=== PATIENT | female | born 1945 | race African-American/Black ===

== ENCOUNTER 2019-09-20 12:51 | Inpatient (IN) | payer MEDICARE, OTHER ==
[~2019-09-20] VITALS: Ht 162.6 cm; Wt 54.4 kg
--- OUTSIDE RECORDS SUMMARY | 2019-09-20 12:54 | XMS REPORT ---
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 Allergies, Adverse Reactions, Alerts This patient has no known allergies or adverse reactions. Medications This patient has no known medications. Results Test Description Test Time Test Comments Text Results Atomic Results Result Comments RAD, SPINE, LUMBAR, 1 VIEW 2018-04-13 15:00:00 Reason for exam:->low back pain FINAL REPORT Lumbar spine one view INDICATION: Low back pain COMPARISON: None available. IMPRESSION: Spinal evaluation is significantly limited on a single view study. Vertebral heights are grossly maintained. There is suspected lower lumbar facet arthropathy and mild degenerative disc height loss. There are incidental vascular calcifications and nonspecific coarse pelvic calcification, possibly a fibroid. There is a 1.8 cm sclerotic lesion in the right iliac wing. Benign etiologies are possible, but neoplastic bone disease cannot be excluded. Consider bone scan for additional skeletal assessment. Signed: Antonio Gaineseport Verified Date/Time: 04/13/2018 15:00:22 Reading Location: [address] Consult Reading Room PHORUS 2018-04-13 05:37:00 PHOSPHORUS (BEAKER) (test ezkt=120) 4.1 mg/dL 2.3-4.7 [id number] 05:37:00* Test Item Value Reference Range Comments MAGNESIUM (BEAKER) (test okmf=306) 2.2 mg/dL 1.6-2.6 BASIC METABOLIC [id number] 05:37:00* Test Item Value Reference Range Comments SODIUM (BEAKER) (test knjm=618) 135 meq/L 136-145 POTASSIUM (BEAKER) (test rxgb=834) 4.2 meq/L 3.5-5.1 CHLORIDE (BEAKER) (test hqfd=527) 101 meq/L 98-107 CO2 (BEAKER) (test lmtf=825) 25 meq/L 22-29 BLOOD UREA NITROGEN (BEAKER) (test xtzd=480) 8 mg/dL 7-21 CREATININE (BEAKER) (test upwu=739) 0.72 mg/dL 0.57-1.25 GLUCOSE RANDOM (BEAKER) (test ionq=721) 103 mg/dL 70-105 CALCIUM (BEAKER) (test mwuj=476) 10.1 mg/dL 8.4-10.2 EGFR (BEAKER) (test jtkz=6164) 96 mL/min/1.73 sq m ESTIMATED GFR IS NOT ACCURATE CREATININE CLEARANCE IN PREDICTING GLOMERULAR FILTRATION RATE. ESTIMATED GFR IS NOT APPLICABLE FOR DIALYSIS PATIENTS. CBC W/PLT COUNT & AUTO [id number] 05:21:00* Test Item Value Reference Range Comments WHITE BLOOD CELL COUNT (BEAKER) (test hacq=400) 9.6 K/ L 3.5-10.5 RED BLOOD CELL COUNT (BEAKER) (test zzet=502) 4.44 M/ L 3.93-5.22 HEMOGLOBIN (BEAKER) (test cgte=627) 13.0 GM/DL 11.2-15.7 HEMATOCRIT (BEAKER) (test gwxj=176) 41.2 % 34.1-44.9 MEAN CORPUSCULAR VOLUME (BEAKER) (test ihhy=529) 92.8 fL 79.4-94.8 MEAN CORPUSCULAR HEMOGLOBIN (BEAKER) (test zbbi=851) 29.3 pg 25.6-32.2 MEAN CORPUSCULAR HEMOGLOBIN CONC (BEAKER) (test mhbs=816) 31.6 GM/DL 32.2-35.5 RED CELL DISTRIBUTION WIDTH (BEAKER) (test ylla=658) 13.2 % 11.7-14.4 PLATELET COUNT (BEAKER) (test rjwm=904) 233 K/CU MM 150-450 MEAN PLATELET VOLUME (BEAKER) (test xhlj=693) 9.4 fL 9.4-12.3 NUCLEATED RED BLOOD CELLS (BEAKER) (test rwpc=217) 0 /100 WBC 0-0 NEUTROPHILS RELATIVE PERCENT (BEAKER) (test awqx=803) 65 % LYMPHOCYTES RELATIVE PERCENT (BEAKER) (test sgyi=329) 25 % MONOCYTES RELATIVE PERCENT (BEAKER) (test ejes=302) 9 % EOSINOPHILS RELATIVE PERCENT (BEAKER) (test exvt=366) 1 % BASOPHILS RELATIVE PERCENT (BEAKER) (test llil=845) 0 % NEUTROPHILS ABSOLUTE COUNT (BEAKER) (test lzhn=294) 6.24 K/ L 1.56-6.13 LYMPHOCYTES ABSOLUTE COUNT (BEAKER) (test uxbr=439) 2.38 K/ L 1.18-3.74 MONOCYTES ABSOLUTE COUNT (BEAKER) (test onov=688) 0.86 K/ L 0.24-0.36 EOSINOPHILS ABSOLUTE COUNT (BEAKER) (test nele=953) 0.07 K/ L 0.04-0.36 BASOPHILS ABSOLUTE COUNT (BEAKER) (test ypmj=993) 0.02 K/ L 0.01-0.08 IMMATURE GRANULOCYTES-RELATIVE PERCENT (BEAKER) (test jwyb=1701) 0 % 0-1 CBC W/PLT COUNT & AUTO [id number] 06:51:00* Test Item Value Reference Range Comments WHITE BLOOD CELL COUNT (BEAKER) (test ysec=252) 7.0 K/ L 3.5-10.5 RED BLOOD CELL COUNT (BEAKER) (test umjy=836) 3.97 M/ L 3.93-5.22 HEMOGLOBIN (BEAKER) (test dvnn=220) 11.6 GM/DL 11.2-15.7 HEMATOCRIT (BEAKER) (test jmvf=452) 35.9 % 34.1-44.9 MEAN CORPUSCULAR VOLUME (BEAKER) (test szgv=977) 90.4 fL 79.4-94.8 MEAN CORPUSCULAR HEMOGLOBIN (BEAKER) (test qqpt=098) 29.2 pg 25.6-32.2 MEAN CORPUSCULAR HEMOGLOBIN CONC (BEAKER) (test zhpm=032) 32.3 GM/DL 32.2-35.5 RED CELL DISTRIBUTION WIDTH (BEAKER) (test bohg=572) 13.2 % 11.7-14.4 PLATELET COUNT (BEAKER) (test oobf=084) 188 K/CU MM 150-450 MEAN PLATELET VOLUME (BEAKER) (test rqhp=820) 9.5 fL 9.4-12.3 NUCLEATED RED BLOOD CELLS (BEAKER) (test yjud=108) 0 /100 WBC 0-0 NEUTROPHILS RELATIVE PERCENT (BEAKER) (test ggwm=552) 54 % LYMPHOCYTES RELATIVE PERCENT (BEAKER) (test cbip=836) 36 % MONOCYTES RELATIVE PERCENT (BEAKER) (test rjps=988) 8 % EOSINOPHILS RELATIVE PERCENT (BEAKER) (test axtl=145) 2 % BASOPHILS RELATIVE PERCENT (BEAKER) (test eibu=449) 1 % NEUTROPHILS ABSOLUTE COUNT (BEAKER) (test hkby=097) 3.75 K/ L 1.56-6.13 LYMPHOCYTES ABSOLUTE COUNT (BEAKER) (test sdod=372) 2.48 K/ L 1.18-3.74 MONOCYTES ABSOLUTE COUNT (BEAKER) (test saxj=850) 0.56 K/ L 0.24-0.36 EOSINOPHILS ABSOLUTE COUNT (BEAKER) (test evgu=247) 0.14 K/ L 0.04-0.36 BASOPHILS ABSOLUTE COUNT (BEAKER) (test slbk=378) 0.04 K/ L 0.01-0.08 IMMATURE GRANULOCYTES-RELATIVE PERCENT (BEAKER) (test uehp=4339) 0 % 0-1 RAD, CHEST, 1 VIEW, NON [id number] 08:16:00Reason for exam:->SHORTNESS OF BREATHShould this be performed at the bedside?->YesFINAL REPORT INDICATION: SHORTNESS OF BREATH COMPARISON: April 09, 2018 TECHNIQUE: Chest radiograph, single view, portable technique. FINDINGS / IMPRESSION: Right internal jugular pulmonary artery catheter has been removed. No pulmonary venous congestion or edema. Right hilar surgical clips and highly elevated right hemidiaphragm again noted. Signed: Enrique Mccray MDReport Verified Date/Time: 04/10/2018 08:16:24 Reading Location: [facility] C013X Ortho Consult Reading Room Electronically signed by: ENRIQUE MCCRAY M.D. on 0 04/10/2018 08:16 AM BASIC METABOLIC [id number] 07:15:00* Test Item Value Reference Range Comments SODIUM (BEAKER) (test rlbx=172) 142 meq/L 136-145 POTASSIUM (BEAKER) (test gubf=783) 3.9 meq/L 3.5-5.1 CHLORIDE (BEAKER) (test lhvj=217) 109 meq/L 98-107 CO2 (BEAKER) (test vbdi=708) 25 meq/L 22-29 BLOOD UREA NITROGEN (BEAKER) (test bezn=810) 11 mg/dL 7-21 CREATININE (BEAKER) (test asxx=027) 0.67 mg/dL 0.57-1.25 GLUCOSE RANDOM (BEAKER) (test wiir=736) 91 mg/dL 70-105 CALCIUM (BEAKER) (test ledq=090) 9.2 mg/dL 8.4-10.2 EGFR (BEAKER) (test rnmy=3190) 105 mL/min/1.73 sq m ESTIMATED GFR IS NOT ACCURATE CREATININE CLEARANCE IN PREDICTING GLOMERULAR FILTRATION RATE. ESTIMATED GFR IS NOT APPLICABLE FOR DIALYSIS PATIENTS. CBC W/PLT COUNT & AUTO [id number] 06:51:00* Test Item Value Reference Range Comments WHITE BLOOD CELL COUNT (BEAKER) (test uhdq=519) 8.6 K/ L 3.5-10.5 RED BLOOD CELL COUNT (BEAKER) (test rlqd=705) 4.24 M/ L 3.93-5.22 HEMOGLOBIN (BEAKER) (test xxvb=197) 12.2 GM/DL 11.2-15.7 HEMATOCRIT (BEAKER) (test xvjp=698) 39.4 % 34.1-44.9 MEAN CORPUSCULAR VOLUME (BEAKER) (test rlay=750) 92.9 fL 79.4-94.8 MEAN CORPUSCULAR HEMOGLOBIN (BEAKER) (test clib=980) 28.8 pg 25.6-32.2 MEAN CORPUSCULAR HEMOGLOBIN CONC (BEAKER) (test mrnu=595) 31.0 GM/DL 32.2-35.5 RED CELL DISTRIBUTION WIDTH (BEAKER) (test wxrf=150) 13.5 % 11.7-14.4 PLATELET COUNT (BEAKER) (test mjhy=812) 168 K/CU MM 150-450 MEAN PLATELET VOLUME (BEAKER) (test ghya=759) 9.4 fL 9.4-12.3 NUCLEATED RED BLOOD CELLS (BEAKER) (test cexo=939) 0 /100 WBC 0-0 NEUTROPHILS RELATIVE PERCENT (BEAKER) (test dmhs=798) 57 % LYMPHOCYTES RELATIVE PERCENT (BEAKER) (test fnxn=327) 35 % MONOCYTES RELATIVE PERCENT (BEAKER) (test gayf=563) 7 % EOSINOPHILS RELATIVE PERCENT (BEAKER) (test grue=558) 1 % BASOPHILS RELATIVE PERCENT (BEAKER) (test arij=892) 0 % NEUTROPHILS ABSOLUTE COUNT (BEAKER) (test pltu=150) 4.89 K/ L 1.56-6.13 LYMPHOCYTES ABSOLUTE COUNT (BEAKER) (test yrsv=811) 2.96 K/ L 1.18-3.74 MONOCYTES ABSOLUTE COUNT (BEAKER) (test ujle=334) 0.60 K/ L 0.24-0.36 EOSINOPHILS ABSOLUTE COUNT (BEAKER) (test wdxm=165) 0.08 K/ L 0.04-0.36 BASOPHILS ABSOLUTE COUNT (BEAKER) (test mtuw=551) 0.03 K/ L 0.01-0.08 IMMATURE GRANULOCYTES-RELATIVE PERCENT (BEAKER) (test cxxt=1699) 0 % 0-1 [id number] 17:17:00* Test Item Value Reference Range Comments FIBRINOGEN LEVEL (BEAKER) (test mgnu=635) 276 mg/dl 225-434 Continue for duration of infusion.HEMOGLOBIN AND [id number] 17:09:00* Test Item Value Reference Range Comments HEMOGLOBIN (BEAKER) (test fcpd=508) 12.4 GM/DL 11.2-15.7 HEMATOCRIT (BEAKER) (test bbdg=883) 37.9 % 34.1-44.9 B-TYPE NATRIURETIC FACTOR (BNP)2018-04-09 14:10:00* Test Item Value Reference Range Comments B-TYPE NATRIURETIC PEPTIDE (BEAKER) (test zjan=252) 336 pg/mL 0-100 [id number] 11:34:00* Test Item Value Reference Range Comments FIBRINOGEN LEVEL (BEAKER) (test ehgb=850) 295 mg/dl 225-434 Continue for duration of infusion.HEMOGLOBIN AND [id number] 11:29:00* Test Item Value Reference Range Comments HEMOGLOBIN (BEAKER) (test nksk=166) 12.8 GM/DL 11.2-15.7 HEMATOCRIT (BEAKER) (test owij=875) 40.1 % 34.1-44.9 TROPONIN [id number] 09:44:00* Test Item Value Reference Range Comments TROPONIN I (BEAKER) (test sfgt=558) 0.33 ng/mL 0.00-0.03 Troponin I (TnI) levels must be interpreted in the context of the presenting sym ptoms and the clinical findings. Elevated TnI levels indicate myocardial damage, but are not specific for ischemic heart disease. Elevated TnI levels are seen in patients with other cardiac conditions (including myocarditis and congestive h eart failure), and slight TnI elevations occur in patients with other conditions , including sepsis, renal failure, acidosis, acute neurological disease, and per sistent tachyarrhythmia.[id number] 06:17:00* Test Item Value Reference Range Comments MAGNESIUM (BEAKER) (test vmeu=142) 2.2 mg/dL 1.6-2.6 BASIC METABOLIC [id number] 06:17:00* Test Item Value Reference Range Comments SODIUM (BEAKER) (test feco=886) 139 meq/L 136-145 POTASSIUM (BEAKER) (test uget=921) 4.1 meq/L 3.5-5.1 CHLORIDE (BEAKER) (test xjjw=346) 107 meq/L 98-107 CO2 (BEAKER) (test ujnz=326) 23 meq/L 22-29 BLOOD UREA NITROGEN (BEAKER) (test wurx=749) 11 mg/dL 7-21 CREATININE (BEAKER) (test nafw=023) 0.67 mg/dL 0.57-1.25 GLUCOSE RANDOM (BEAKER) (test zifr=964) 132 mg/dL 70-105 CALCIUM (BEAKER) (test njom=198) 9.2 mg/dL 8.4-10.2 EGFR (BEAKER) (test ezph=8948) 105 mL/min/1.73 sq m ESTIMATED GFR IS NOT ACCURATE CREATININE CLEARANCE IN PREDICTING GLOMERULAR FILTRATION RATE. ESTIMATED GFR IS NOT APPLICABLE FOR DIALYSIS PATIENTS. CBC W/PLT COUNT & AUTO [id number] 05:44:00* Test Item Value Reference Range Comments WHITE BLOOD CELL COUNT (BEAKER) (test qdbe=331) 9.7 K/ L 3.5-10.5 RED BLOOD CELL COUNT (BEAKER) (test sbwr=587) 4.45 M/ L 3.93-5.22 HEMOGLOBIN (BEAKER) (test yhyd=642) 12.9 GM/DL 11.2-15.7 HEMATOCRIT (BEAKER) (test rckv=197) 39.9 % 34.1-44.9 MEAN CORPUSCULAR VOLUME (BEAKER) (test osrs=098) 89.7 fL 79.4-94.8 MEAN CORPUSCULAR HEMOGLOBIN (BEAKER) (test usvc=443) 29.0 pg 25.6-32.2 MEAN CORPUSCULAR HEMOGLOBIN CONC (BEAKER) (test naee=964) 32.3 GM/DL 32.2-35.5 RED CELL DISTRIBUTION WIDTH (BEAKER) (test gbvu=946) 13.0 % 11.7-14.4 PLATELET COUNT (BEAKER) (test eave=628) 195 K/CU MM 150-450 MEAN PLATELET VOLUME (BEAKER) (test rthi=147) 9.2 fL 9.4-12.3 NUCLEATED RED BLOOD CELLS (BEAKER) (test zkgo=439) 0 /100 WBC 0-0 NEUTROPHILS RELATIVE PERCENT (BEAKER) (test yvrh=197) 81 % LYMPHOCYTES RELATIVE PERCENT (BEAKER) (test duow=286) 11 % MONOCYTES RELATIVE PERCENT (BEAKER) (test lqas=184) 7 % EOSINOPHILS RELATIVE PERCENT (BEAKER) (test fmao=874) 0 % BASOPHILS RELATIVE PERCENT (BEAKER) (test tdzv=685) 0 % NEUTROPHILS ABSOLUTE COUNT (BEAKER) (test vbnz=084) 7.90 K/ L 1.56-6.13 LYMPHOCYTES ABSOLUTE COUNT (BEAKER) (test jllv=172) 1.08 K/ L 1.18-3.74 MONOCYTES ABSOLUTE COUNT (BEAKER) (test tylx=160) 0.68 K/ L 0.24-0.36 EOSINOPHILS ABSOLUTE COUNT (BEAKER) (test egpo=946) 0.00 K/ L 0.04-0.36 BASOPHILS ABSOLUTE COUNT (BEAKER) (test xras=810) 0.01 K/ L 0.01-0.08 IMMATURE GRANULOCYTES-RELATIVE PERCENT (BEAKER) (test yonl=1914) 1 % 0-1 [id number] 05:26:00* Test Item Value Reference Range Comments FIBRINOGEN LEVEL (BEAKER) (test hiah=772) 356 mg/dl 225-434 Continue for duration of infusion.[id number] 05:26:00* Test Item Value Reference Range Comments PARTIAL THROMBOPLASTIN TIME (BEAKER) (test imzh=643) 29.6 seconds 22.5-36.0 Continue for duration of infusion.RAD, CHEST, 1 VIEW, NON [id number] 04:07:00Reason for exam:->SHORTNESS OF BREATHShould this be performed at the bedside?->YesFINAL REPORT Comparison exam: 04/08/2018 No pneumothorax, focal pulmonary consolidation, or significant pleural effusion. Normal cardiomediastinal contours. Pulmonary artery infusion catheter terminates in a left lower lobe pulmonary artery branch. Signed: Neto Townsend MDReport Verified Date/Time: 04/09/2018 04:07:31 Reading Location: [address] Reading Room ONIN [id number] 00:57:00* Test Item Value Reference Range Comments TROPONIN I (BEAKER) (test eiyd=453) 0.54 ng/mL 0.00-0.03 Troponin I (TnI) levels must be interpreted in the context of the presenting sym ptoms and the clinical findings. Elevated TnI levels indicate myocardial damage, but are not specific for ischemic heart disease. Elevated TnI levels are seen in patients with other cardiac conditions (including myocarditis and congestive h eart failure), and slight TnI elevations occur in patients with other conditions , including sepsis, renal failure, acidosis, acute neurological disease, and per sistent tachyarrhythmia.[id number] 00:54:00* Test Item Value Reference Range Comments FIBRINOGEN LEVEL (BEAKER) (test rfko=627) 406 mg/dl 225-434 Obtain lab prior to starting thrombolytic infusion.Obtain lab prior to starting thrombolytic infusion.[id number] 00:54:00* Test Item Value Reference Range Comments PROTIME (BEAKER) (test orcm=757) 15.5 seconds 11.7-14.7 INR (BEAKER) (test esrx=552) 1.2 <=5.9 PARTIAL THROMBOPLASTIN TIME (BEAKER) (test ynay=840) 37.8 seconds 22.5-36.0 RECOMMENDED COUMADIN/WARFARIN INR THERAPY RANGESSTANDARD DOSE: 2.0 - 3.0 Inclu yonis: PROPHYLAXIS for venous thrombosis, systemic embolization; TREATMENT for josh ous thrombosis and/or pulmonary embolus.HIGH RISK: Target INR is 2.5-3.5 for pat ients with mechanical heart valves.Obtain lab prior to starting thrombolytic inf usion.Obtain lab prior to starting thrombolytic infusion.Obtain lab prior to sta rting thrombolytic infusion.Obtain lab prior to starting thrombolytic infusion. CBC W/PLT COUNT & AUTO [id number] 00:53:00* Test Item Value Reference Range Comments WHITE BLOOD CELL COUNT (BEAKER) (test nqca=849) 5.7 K/ L 3.5-10.5 RED BLOOD CELL COUNT (BEAKER) (test kuke=034) 4.63 M/ L 3.93-5.22 HEMOGLOBIN (BEAKER) (test xhuc=990) 13.5 GM/DL 11.2-15.7 HEMATOCRIT (BEAKER) (test zeks=369) 42.1 % 34.1-44.9 MEAN CORPUSCULAR VOLUME (BEAKER) (test oudn=322) 90.9 fL 79.4-94.8 MEAN CORPUSCULAR HEMOGLOBIN (BEAKER) (test wawr=601) 29.2 pg 25.6-32.2 MEAN CORPUSCULAR HEMOGLOBIN CONC (BEAKER) (test axdo=724) 32.1 GM/DL 32.2-35.5 RED CELL DISTRIBUTION WIDTH (BEAKER) (test aued=869) 13.0 % 11.7-14.4 PLATELET COUNT (BEAKER) (test spdl=516) 219 K/CU MM 150-450 MEAN PLATELET VOLUME (BEAKER) (test qroy=352) 9.1 fL 9.4-12.3 NUCLEATED RED BLOOD CELLS (BEAKER) (test zoes=006) 0 /100 WBC 0-0 NEUTROPHILS RELATIVE PERCENT (BEAKER) (test wiid=162) 86 % LYMPHOCYTES RELATIVE PERCENT (BEAKER) (test zzye=159) 12 % MONOCYTES RELATIVE PERCENT (BEAKER) (test rrmv=365) 2 % EOSINOPHILS RELATIVE PERCENT (BEAKER) (test tffu=558) 0 % BASOPHILS RELATIVE PERCENT (BEAKER) (test gxkf=215) 0 % NEUTROPHILS ABSOLUTE COUNT (BEAKER) (test qmkd=015) 4.90 K/ L 1.56-6.13 LYMPHOCYTES ABSOLUTE COUNT (BEAKER) (test dghk=781) 0.68 K/ L 1.18-3.74 MONOCYTES ABSOLUTE COUNT (BEAKER) (test hmwt=936) 0.10 K/ L 0.24-0.36 EOSINOPHILS ABSOLUTE COUNT (BEAKER) (test gzah=624) 0.00 K/ L 0.04-0.36 BASOPHILS ABSOLUTE COUNT (BEAKER) (test qwbf=231) 0.00 K/ L 0.01-0.08 IMMATURE GRANULOCYTES-RELATIVE PERCENT (BEAKER) (test mbud=0680) 1 % 0-1 PROTHROMBIN TIME/[id number] 00:53:00* Test Item Value Reference Range Comments PROTIME (BEAKER) (test bixv=269) 15.5 seconds 11.7-14.7 INR (BEAKER) (test xqvi=407) 1.2 <=5.9 RECOMMENDED COUMADIN/WARFARIN INR THERAPY RANGESSTANDARD DOSE: 2.0 - 3.0 Inclu yonis: PROPHYLAXIS for venous thrombosis, systemic embolization; TREATMENT for josh ous thrombosis and/or pulmonary embolus.HIGH RISK: Target INR is 2.5-3.5 for pat ients with mechanical heart valves.CT, CHEST WITH IV CONTRAST- PE TEST DESIGN 2018-04-08 16:16:00Reason for exam:->SOB/CPFINAL REPORT HISTORY: Chest pain, acute, PE suspected, high pretest probSOB/CP COMPARISON : None Technique : Multiple axial images of the chest were performed from the lung apices to the lung bases with 2 mm slice thickness with the administration of IV contrast. This exam was performed according to our departmental dose optimization program which includes automated exposure control, adjustment of the mA and/or kV according to patient size and/or use of iterative reconstructive technique. Comment: There is asymmetric enlargement of the right thyroid lobe. There are several nodules with the largest measuring up to 1.7 cm. Correlation with a thyroid ultrasound is advised. There is no hilar, mediastinal or axillary lymphadenopathy. The visualized portions of the liver, adrenal glands, pancreas, and kidneys are within normal limits. There are at least 2 enhancing splenic lesions with the largest measuring up to 0.9 cm. These can be best assessed with an MRI, multiphase protocol. These could represent splenic hamartomas or splenic hemangiomata. Other etiologies, however, cannot be excl uded. The osseous structures as well as the subcutaneous soft tissues are withou t any abnormalities. There are some scattered areas of some linear subsegmental atelectasis versus scarring in the lungs. In the right lower lobe, there is an a pproximately 2 mm pulmonary nodule. Postsurgical changes are seen from a presume d right upper lobectomy. There is no pleural effusion, pneumothorax or infiltrat e. This is seen most significantly in the left distal pulmonary artery extending into several segmental and subsegmental pulmonary artery branches. Extensive em bolus is also seen in the distal portion of the main right pulmonary artery. Fin dings were communicated to Dr. Hunt. Impression: 1. Extensive bilateral pulmona ry embolus. 2. Postsurgical changes suggestive of prior right upper lobectomy. 3 . Subcentimeter nodule in the right lower lobe. Follow-up CT in 6 months is advi sed. 4. Enlargement of the right thyroid lobe with several nodules/cysts. Please see above. Signed: Deisy Royal MDReport Verified Date/Time: 04/08/2018 16:16: 07 Reading Location: [facility] B1 C013Y CT Body Reading Room Electronically sign ed by: DEISY ROYAL M.D. on 04/08/2018 04:16 PM [id number] 15:27:00* Test Item Value Reference Range Comments PARTIAL THROMBOPLASTIN TIME (CATHIE) (test ufoc=574) 25.2 seconds 22.5-36.0 Prior to initiating heparinTROPONIN [id number] 14:58:00* Test Item Value Reference Range Comments TROPONIN I (CATHIE) (test nfkg=521) 0.35 ng/mL 0.00-0.03 Troponin I (TnI) levels must be interpreted in the context of the presenting sym ptoms and the clinical findings. Elevated TnI levels indicate myocardial damage, but are not specific for ischemic heart disease. Elevated TnI levels are seen in patients with other cardiac conditions (including myocarditis and congestive h eart failure), and slight TnI elevations occur in patients with other conditions , including sepsis, renal failure, acidosis, acute neurological disease, and per sistent tachyarrhythmia.CREATINE KINASE (CK), TOTAL AND [id number] 14:55:00* Test Item Value Reference Range Comments CREATINE KINASE TOTAL (BEAKER) (test okmc=651) 42 U/L 29-200 CREATINE KINASE-MB (BEAKER) (test nkyr=849) 2.7 ng/mL 0.0-6.6 CREATINE KINASE-MB INDEX (BEAKER) (test jmzj=276) 6.4 % CK-MB Reference Range:<6.7 Normal6.7-10.0 Borderline>10.0 AbnormalB- TYPE NATRIURETIC FACTOR (BNP)2018-04-08 14:52:00* Test Item Value Reference Range Comments B-TYPE NATRIURETIC PEPTIDE (BEAKER) (test xgcd=472) 118 pg/mL 0-100 BASIC METABOLIC [id number] 14:48:00* Test Item Value Reference Range Comments SODIUM (BEAKER) (test nsfj=476) 141 meq/L 136-145 POTASSIUM (BEAKER) (test lvmr=425) 4.5 meq/L 3.5-5.1 Specimen slightly hemolyzed CHLORIDE (BEAKER) (test hlgp=364) 110 meq/L 98-107 CO2 (BEAKER) (test uaid=808) 21 meq/L 22-29 BLOOD UREA NITROGEN (BEAKER) (test ovfm=001) 9 mg/dL 7-21 CREATININE (BEAKER) (test yrke=896) 0.68 mg/dL 0.57-1.25 Specimen slightly hemolyzed GLUCOSE RANDOM (BEAKER) (test rjwk=596) 141 mg/dL 70-105 CALCIUM (BEAKER) (test tsqj=524) 10.0 mg/dL 8.4-10.2 EGFR (BEAKER) (test rakf=1070) 103 mL/min/1.73 sq m ESTIMATED GFR IS NOT ACCURATE CREATININE CLEARANCE IN PREDICTING GLOMERULAR FILTRATION RATE. ESTIMATED GFR IS NOT APPLICABLE FOR DIALYSIS PATIENTS. CBC W/PLT COUNT & AUTO [id number] 13:52:00* Test Item Value Reference Range Comments WHITE BLOOD CELL COUNT (BEAKER) (test tkgf=021) 5.5 K/ L 3.5-10.5 RED BLOOD CELL COUNT (BEAKER) (test piag=998) 4.74 M/ L 3.93-5.22 HEMOGLOBIN (BEAKER) (test dryr=769) 13.8 GM/DL 11.2-15.7 HEMATOCRIT (BEAKER) (test ubvk=304) 43.0 % 34.1-44.9 MEAN CORPUSCULAR VOLUME (BEAKER) (test rtze=391) 90.7 fL 79.4-94.8 MEAN CORPUSCULAR HEMOGLOBIN (BEAKER) (test sgam=682) 29.1 pg 25.6-32.2 MEAN CORPUSCULAR HEMOGLOBIN CONC (BEAKER) (test nncr=401) 32.1 GM/DL 32.2-35.5 RED CELL DISTRIBUTION WIDTH (BEAKER) (test etlw=577) 13.2 % 11.7-14.4 PLATELET COUNT (BEAKER) (test nfzy=136) 215 K/CU MM 150-450 MEAN PLATELET VOLUME (BEAKER) (test llbe=455) 9.4 fL 9.4-12.3 NUCLEATED RED BLOOD CELLS (BEAKER) (test hibs=502) 0 /100 WBC 0-0 NEUTROPHILS RELATIVE PERCENT (BEAKER) (test aaqy=364) 83 % LYMPHOCYTES RELATIVE PERCENT (BEAKER) (test bcxr=360) 14 % MONOCYTES RELATIVE PERCENT (BEAKER) (test lgdg=968) 3 % EOSINOPHILS RELATIVE PERCENT (BEAKER) (test vmlj=175) 0 % BASOPHILS RELATIVE PERCENT (BEAKER) (test fjgf=869) 0 % NEUTROPHILS ABSOLUTE COUNT (BEAKER) (test rncw=173) 4.55 K/ L 1.56-6.13 LYMPHOCYTES ABSOLUTE COUNT (BEAKER) (test vzlv=059) 0.74 K/ L 1.18-3.74 MONOCYTES ABSOLUTE COUNT (BEAKER) (test jyrk=846) 0.15 K/ L 0.24-0.36 EOSINOPHILS ABSOLUTE COUNT (BEAKER) (test ipyg=158) 0.01 K/ L 0.04-0.36 BASOPHILS ABSOLUTE COUNT (BEAKER) (test ocby=833) 0.01 K/ L 0.01-0.08 IMMATURE GRANULOCYTES-RELATIVE PERCENT (BEAKER) (test bwgd=9394) 0 % 0-1 RAD, CHEST, 1 VIEW, NON [id number] 13:50:00Reason for exam:->sobShould this be performed at the bedside?->NoFINAL REPORT Chest one view compared to February 17, 2018 Discussion: Linear densities projecting right chest possibly represent overlying material. There is minimal elevation right hemidiaphragm and I could not exclude right base nonspecific pulmonary opacities. Consider follow-up PA and lateral chest imaging if indicated. Cardiopulmonary appearance otherwise unremarkable. No gross effusion or pneumothorax. Signed: Diane Nesbitteptariq Verified Date/Time: 04/08/2018 13:50:13 Reading Location: [facility] B1 [id number] Consult Reading Room UE [id number] 19:30:00Surgical Pathology Report Case: [id number] Authorizing Provider: Reji Morrison MD Collected: 02/11/2018 1430 Ordering Location: [facility] Received: 02/11/2018 1548 PERIOPERATIVE SERVICES Pathologist: Fabby Theodore MD Specimens: A) - Lymph Node, Right Interlobar lymph nodes B) - Lymph Node, RightInferior Pulmonary Lymph Node R9 C) - Lymph Node, SubCarinal Lymph Node level 7 D) - Lung, Right Upper Lobe, RIGHT UPPER LOBE E) - Lymph Node, RIGHT PARATRACHEAL LYMPH NODES 4R F) - Lymph Node, RIGHT PARANRONCHEAL LYMPH NODES G) - Lymph Node, RIGHT HILAR LYMPH NODE A. RIGHT INTERLOBAR LYMPH NODES, DISSECTION: - TWO LYMPH NODES WITH ANTHRACOSIS, NEGATIVE FOR MALIGNANCY (0/2) B. LYMPH NODE, RIGHT INFERIOR PULMONARY LYMPH NODE R9, EXCISION: - LYMPH NODE WITH ANTHRACOSIS, NEGATIVE FOR MALIGNANCY (0/1)C. LYMPH NODE, SUBCARINAL, LEVEL 7, EXCISION: - LARGE LYMPH NODE (3.5 CM IN GREATEST DIMENSION) WITH ANTHRACOSIS, NEGATIVE FOR MALIGNANCY (0/1)D. 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 MULTIPLE LYMPH NODES, RIGHT PERITRACHEAL, DISSECTION: - LYMPH NODES WITH ANTHRACOSIS, NEGATIVE FOR MALIGNANCY (0/5) F. LYMPH NODE, RIGHT PARABRONCHIAL, EXCISION: - LYMPH NODE WITH ANTHRACOSIS, NEGATIVE FOR MALIGNANCY (0/1)G. RIGHT HILAR LYMPH NODE, DISSECTION: - LYMPH NODES WITH ANTHRACOSIS, NEGATIVE FOR MALIGNANCY (0/2)MO/pl Signing Pathologist Direct Phone Line: [phone] signed by Fabby Theodore MD on 02/18/2018 at 7:30 PMThe tumor is close to the pleura, but does not invade that structure. In slide D9, there is acinar adenocarcinoma, 0.5 mm from the pleura. Other slides (D8 and D12) show tumor approaching the pleura, focally within 0.1 mm (lepidic) and less than 0.1mm (acinar).This tumor is pathologic stage pT2b/N0/MxLUNG ( Lung - All Specimens)SPECIMEN Procedure: Lobectomy Specimen Laterality: Right TUMOR Tumor Site: Upper lobe Histologic Type: Invasive adeno carcinoma, lepidic predominant Other Subtypes Present: acinar 25% His tologic Grade: G1: Well differentiated Spread Through Air Spaces (PATRICE): Not identified : Total Tumor Size Inclusive of Invasive and Lepidic Com ponents: Greatest dimension in Centimeters (cm): 4.1 Centimeters (cm) Add itional Dimension in Centimeters (cm): 2.2 Centimeters (cm) Additional Di mension in Centimeters (cm): 2 Centimeters (cm) Invasive Tumor Size: Gre atest dimension in Centimeters (cm): 4.1 Centimeters (cm) Additional Dimensi on in Centimeters (cm): 2.2 Centimeters (cm) Additional Dimension in Cent imeters (cm): 2 Centimeters (cm) Tumor Focality: Single tumor Visceral Pleura Invasion: Not identified Direct Invasion of Adjacent Structures: No adjacent structures present Treatment Effect: No known presurgical the rapy Lymphovascular Invasion: Not identified MARGINS Margins: All franki ns are uninvolved by carcinoma Margins Examined: Bronchial Margins Exam ined: Vascular Margins Examined: Parenchymal Distance of Invasive Ca rcinoma from Closest Margin in Centimeters (cm): 4 Centimeters (cm) Close st Margin: Parenchymal Closest Margin: bronchial margin 5cm LYMPH NOD ES Regional Lymph Nodes: Number of Lymph Nodes Involved: 0 Number of Lymph Nodes Examined: 23 Ruben Stations Examined: 4R: Lower paratrac heal Ruben Stations Examined: 9R: Pulmonary ligament Ruben Stations Examined: 10R: Hilar Ruben Stations Examined: 11R: Interlobar N odal Stations Examined: 12R: Lobar Ruben Stations Examined: Right: pa rabronchial Ruben Stations Examined: 7: Subcarinal PATHOLOGIC STAGE CLAS SIFICATION (pTNM, AJCC 8th Edition) Primary Tumor (pT): pT2b Regional Lymph Nodes (pN): pN0 ADDITIONAL FINDINGS Additional Pathologic Findings: Inflam mation: chronic, focal Additional Pathologic Findings: Emphysema 05267 x 1; 14151 x3;; 03984 x3; 46811Mfmvl upper lobe noduleA. Right interlobar lymph node; B. Right inferior pulmonary lymph node R9; C. Subcarinal lymph node level 7; D. Right upper lobe lung; E. Right paratracheal lymph node 4R; F. Right parabronch ial lymph node; G. Right hilar lymph nodeSpecimen A: In saline labeled "right in terlobar lymph nodes" are two irregular pink-murray to black anthracotic lymph node measuring 1.1 cm and 1.1 cm in greatest dimension. The specimen is entirely sub mitted in cassette A1. Specimen B: In saline labeled "right inferior pulmonary l ymph node R9" is a 1.0 cm in greatest dimension yellow-murray irregular fragment of soft tissue. The specimen is entirely submitted in cassettes B1. Specimen C: In saline labeled "subcarinal lymph node level 7" is a 3.5 x 2.2 x 0.8 cm pink-murray to black irregular anthracotic lymph node. The specimen is bisected and entirely submitted in cassette C1-C2. DB/plSpecimen D: Received fresh for intraoperative frozen consultation diagnosis labeled "right upper lobe lung" is a 112.5 gm, 14 x 8 x 2.6 cm right upper lobe of lung with a 0.3 cm long bronchovascular stump and two stapled linear margins 8 cm and 3 cm coursing from inferior to superio r. The visceral pleura shows a 4 cm area with a subjacent mass. The bronchial ma rgin is shaved for frozen section and the stapled margins are shaved and the spe cimen is serially sectioned to reveal a 4.1 x 2.2 x 2.0 cm nodule that is locate d at 4 cm from the closest staple margin and 5 cm from the bronchus and appears to be grossly abutting the pleura. The cut surface of the mass is murray-yellow and firm. The uninvolved lung is mildly congested with no other discrete lesions or masses. The pleura is murray-red, anthracotic and shows a 2 x 1.5 x 0.4 cm bleb lo cated on the superior aspect. Multiple duran-black soft lymph nodes ranging from 0.1 to 0.3 cm are identified in the peribronchial region. The pleura overlying t he mass is inked black and stapled margins are inked blue and field representatives director sec tions are submitted as follows: D1FS, bronchial margin en face; D2, 3 cm stapled linear margin en face submitted entirely; D3 to D4, 8 cm linear stapled margin en face submitted entirely; D5, bronchial vessels at margin; D6 to D14, tumor cosby bmitted in its entirety sequentially from superior to inferior with adjacent abu tting pleura and adjacent lung parenchyma; D15, field representatives director section of the bl eb; D16, field representatives director section of uninvolved lung; D17 to D20, multiple whole l ymph nodes in each cassette. TQ/plSpecimen E: In saline labeled "right paratrach eal lymph node 4R" are three irregular yellow-murray to black fragments of soft tis kathryn measuring 2.5 x 2.2 x 0.2 cm in aggregate. The specimen is entirely submitte d in cassette E1. Specimen F: In saline labeled "right parabronchial lymph node" is a 1.2 cm in greatest dimension pink-murray to black irregular lymph node. The s pecimen is bisected and entirely submitted in cassette F1. Specimen G: In saline labeled "right hilar lymph node" are two lymph nodes, less than 1cm, pink-murray to black irregular, and with anthracosos. The specimen is entirely submitted in c assette G1. DB/plD. LUNG, RIGHT UPPER LOBE, LOBECTOMY: - BRONCHIAL MARGIN - NEG ATIVE MALIGNANCY - 4 CM FROM CLOSEST STAPLE LINE - 5 CM FROM BRONCHIAL MARGINT his diagnosis was reported to OR-[address] Theodore at 4:14 p.m. D. The right up per lobectomy shows an adenocarcinoma, well-differentiated, focally associated w ith a scar (scar carcinoma). Focally, the lesion encircles some bronchial branch es and extends close to, but nor into or through the pleura. Tumor is present in slides D6 to D14, throughout and sometimes associated with some atypical alveol ar hyperplasia, or inflammatory/ostructive/reactive changes. All the lymph node s in this portion, as well as the other sites (A through G samples) are negativ e for malignancy. Definitve vascular or perineural tumor is not noted.RAD, CHEST, 1 VIEW, NON [id number] 05:31:00Reason for exam:->ptxShould this be performed at the bedside?->YesFINAL REPORT RAD, CHEST, 1 VIEW, NON DEPT INDICATION: ptx COMPARISON: Prior day's exam FINDINGS: Portable frontal view of the chest. IMPRESSION: Support Lines: None Lungs and pleura: Mild congestive interstitial changes may reflect inspiratory effort. Resolving right apical and lateral pneumothorax.Heart and mediastinum: Stable contours. Additional findings: None. Signed: JR Donis Robert MDReport Verified Date/Time: 02/17/2018 05:31:04 Reading Location: [address] Body Reading Room /FREE T4 IF [id number] 07:41:00* Test Item Value Reference Range Comments THYROID STIMULATING HORMONE (BEAKER) (test qhwm=469) 0.97 uIU/mL 0.35-4.94 RAD, CHEST, 1 VIEW, NON [id number] 04:32:00Reason for exam:->ptxShould this be performed at the bedside?->YesFINAL REPORT CLINICAL INDICATION: Pneumothorax Comparison: 02/15/2018 The cardiomediastinal contours are stable. Central pulmonary vascular prominence and bilateral parenchymal and right pleural opacities are unchanged. Small right pneumothorax persists after right chest tube removal. Signed: Dontrell Pham Verified Date/Time: 02/16/2018 04:32:28 Reading Location: [address] Reading Room IUM, [id number] 08:25:00* Test Item Value Reference Range Comments CALCIUM IONIZED (BEAKER) (test nqwz=132) 1.09 mmol/L 1.12-1.27 PH, BLOOD (BEAKER) (test ydjj=2408) 7.39 [id number] 07:38:00* Test Item Value Reference Range Comments PHOSPHORUS (BEAKER) (test zohc=941) 2.5 mg/dL 2.3-4.7 [id number] 07:38:00* Test Item Value Reference Range Comments MAGNESIUM (BEAKER) (test mxhp=935) 2.3 mg/dL 1.6-2.6 BASIC METABOLIC [id number] 07:38:00* Test Item Value Reference Range Comments SODIUM (BEAKER) (test xijg=507) 138 meq/L 136-145 POTASSIUM (BEAKER) (test ksal=829) 3.7 meq/L 3.5-5.1 CHLORIDE (BEAKER) (test docf=993) 101 meq/L 98-107 CO2 (BEAKER) (test tvry=769) 30 meq/L 22-29 BLOOD UREA NITROGEN (BEAKER) (test ozfq=638) 10 mg/dL 7-21 CREATININE (BEAKER) (test xyau=803) 0.66 mg/dL 0.57-1.25 GLUCOSE RANDOM (BEAKER) (test eipi=489) 103 mg/dL 70-105 CALCIUM (BEAKER) (test aftl=502) 9.5 mg/dL 8.4-10.2 EGFR (BEAKER) (test qqkh=8756) 106 mL/min/1.73 sq m ESTIMATED GFR IS NOT ACCURATE CREATININE CLEARANCE IN PREDICTING GLOMERULAR FILTRATION RATE. ESTIMATED GFR IS NOT APPLICABLE FOR DIALYSIS PATIENTS. RAD, CHEST, 1 VIEW, NON [id number] 06:36:00Reason for exam:->ptxShould this be performed at the bedside?->YesFINAL REPORT RAD, CHEST, 1 VIEW, NON DEPT INDICATION: ptx COMPARISON: Prior day's exam FINDINGS: Portable frontal view of the chest. IMPRESSION: Support Lines: Stable. Lungs and pleura: Coarsened interstitial markings grossly unchanged. Trace left effusion. Minimal residual right apical and basilar pneumothorax.Heart and mediastinum: Stable contours.Additional findings: None. Signed: JR Donis Robert MDReport Verified Date/Time: 02/15/2018 06:36:03 Reading Location: [facility] B1 C013Y CT Body Reading Room W/PLT COUNT & AUTO [id number] 06:23:00* Test Item Value Reference Range Comments WHITE BLOOD CELL COUNT (BEAKER) (test apqa=121) 11.8 K/ L 3.5-10.5 RED BLOOD CELL COUNT (BEAKER) (test hmhl=010) 4.24 M/ L 3.93-5.22 HEMOGLOBIN (BEAKER) (test aezk=751) 12.8 GM/DL 11.2-15.7 HEMATOCRIT (BEAKER) (test evss=244) 39.0 % 34.1-44.9 MEAN CORPUSCULAR VOLUME (BEAKER) (test buuq=519) 92.0 fL 79.4-94.8 MEAN CORPUSCULAR HEMOGLOBIN (BEAKER) (test emts=384) 30.2 pg 25.6-32.2 MEAN CORPUSCULAR HEMOGLOBIN CONC (BEAKER) (test lgmn=323) 32.8 GM/DL 32.2-35.5 RED CELL DISTRIBUTION WIDTH (BEAKER) (test tafg=189) 13.3 % 11.7-14.4 PLATELET COUNT (BEAKER) (test tnys=583) 222 K/CU MM 150-450 MEAN PLATELET VOLUME (BEAKER) (test swjn=330) 10.0 fL 9.4-12.3 NUCLEATED RED BLOOD CELLS (BEAKER) (test rqoj=820) 0 /100 WBC 0-0 NEUTROPHILS RELATIVE PERCENT (BEAKER) (test uafx=077) 75 % LYMPHOCYTES RELATIVE PERCENT (BEAKER) (test unyy=602) 14 % MONOCYTES RELATIVE PERCENT (BEAKER) (test flmz=843) 10 % EOSINOPHILS RELATIVE PERCENT (BEAKER) (test pxwf=710) 1 % BASOPHILS RELATIVE PERCENT (BEAKER) (test zewk=160) 0 % NEUTROPHILS ABSOLUTE COUNT (BEAKER) (test bdfo=868) 8.86 K/ L 1.56-6.13 LYMPHOCYTES ABSOLUTE COUNT (BEAKER) (test inhj=863) 1.61 K/ L 1.18-3.74 MONOCYTES ABSOLUTE COUNT (BEAKER) (test ssxk=045) 1.20 K/ L 0.24-0.36 EOSINOPHILS ABSOLUTE COUNT (BEAKER) (test becb=655) 0.06 K/ L 0.04-0.36 BASOPHILS ABSOLUTE COUNT (BEAKER) (test cjuf=079) 0.03 K/ L 0.01-0.08 IMMATURE GRANULOCYTES-RELATIVE PERCENT (BEAKER) (test ozwa=4044) 1 % 0-1 CALCIUM, [id number] 09:51:00* Test Item Value Reference Range Comments CALCIUM IONIZED (BEAKER) (test ihue=657) 1.08 mmol/L 1.12-1.27 PH, BLOOD (BEAKER) (test qzqj=8552) 7.43 [id number] 08:25:00* Test Item Value Reference Range Comments PHOSPHORUS (BEAKER) (test hemu=804) 2.2 mg/dL 2.3-4.7 [id number] 08:25:00* Test Item Value Reference Range Comments MAGNESIUM (BEAKER) (test oyet=683) 1.9 mg/dL 1.6-2.6 BASIC METABOLIC [id number] 08:25:00* Test Item Value Reference Range Comments SODIUM (BEAKER) (test mhkv=935) 133 meq/L 136-145 POTASSIUM (BEAKER) (test uehg=672) 3.9 meq/L 3.5-5.1 CHLORIDE (BEAKER) (test nzgs=018) 99 meq/L 98-107 CO2 (BEAKER) (test tcxh=929) 25 meq/L 22-29 BLOOD UREA NITROGEN (BEAKER) (test lmzu=094) 9 mg/dL 7-21 CREATININE (BEAKER) (test nwei=574) 0.66 mg/dL 0.57-1.25 GLUCOSE RANDOM (BEAKER) (test nuhh=798) 105 mg/dL 70-105 CALCIUM (BEAKER) (test boqj=405) 8.8 mg/dL 8.4-10.2 EGFR (BEAKER) (test odyf=3325) 106 mL/min/1.73 sq m ESTIMATED GFR IS NOT ACCURATE CREATININE CLEARANCE IN PREDICTING GLOMERULAR FILTRATION RATE. ESTIMATED GFR IS NOT APPLICABLE FOR DIALYSIS PATIENTS. CBC W/PLT COUNT & AUTO [id number] 07:11:00* Test Item Value Reference Range Comments WHITE BLOOD CELL COUNT (BEAKER) (test uslo=215) 12.0 K/ L 3.5-10.5 RED BLOOD CELL COUNT (BEAKER) (test ioga=763) 4.16 M/ L 3.93-5.22 HEMOGLOBIN (BEAKER) (test yron=082) 12.7 GM/DL 11.2-15.7 HEMATOCRIT (BEAKER) (test otbn=496) 37.8 % 34.1-44.9 MEAN CORPUSCULAR VOLUME (BEAKER) (test poja=430) 90.9 fL 79.4-94.8 MEAN CORPUSCULAR HEMOGLOBIN (BEAKER) (test wzbv=355) 30.5 pg 25.6-32.2 MEAN CORPUSCULAR HEMOGLOBIN CONC (BEAKER) (test fqro=039) 33.6 GM/DL 32.2-35.5 RED CELL DISTRIBUTION WIDTH (BEAKER) (test husc=660) 13.4 % 11.7-14.4 PLATELET COUNT (BEAKER) (test lxqr=252) 181 K/CU MM 150-450 MEAN PLATELET VOLUME (BEAKER) (test tvjx=174) 9.3 fL 9.4-12.3 NUCLEATED RED BLOOD CELLS (BEAKER) (test bljx=077) 0 /100 WBC 0-0 NEUTROPHILS RELATIVE PERCENT (BEAKER) (test jxtn=479) 79 % LYMPHOCYTES RELATIVE PERCENT (BEAKER) (test pwcx=945) 12 % MONOCYTES RELATIVE PERCENT (BEAKER) (test rwwf=702) 9 % EOSINOPHILS RELATIVE PERCENT (BEAKER) (test vwif=902) 0 % BASOPHILS RELATIVE PERCENT (BEAKER) (test suyb=989) 0 % NEUTROPHILS ABSOLUTE COUNT (BEAKER) (test nadx=169) 9.45 K/ L 1.56-6.13 LYMPHOCYTES ABSOLUTE COUNT (BEAKER) (test xrml=925) 1.42 K/ L 1.18-3.74 MONOCYTES ABSOLUTE COUNT (BEAKER) (test fblh=321) 1.04 K/ L 0.24-0.36 EOSINOPHILS ABSOLUTE COUNT (BEAKER) (test nvat=553) 0.02 K/ L 0.04-0.36 BASOPHILS ABSOLUTE COUNT (BEAKER) (test avvs=183) 0.01 K/ L 0.01-0.08 IMMATURE GRANULOCYTES-RELATIVE PERCENT (BEAKER) (test nvpb=8654) 0 % 0-1 RAD, CHEST, 1 VIEW, NON [id number] 04:48:00Reason for exam:->chest tubeShould this be performed at the bedside?->YesFINAL REPORT CLINICAL INDICATION: Support lines. Comparison: 02/13/2018 The cardiomediastinal contours are stable. The lung volumes remain low. Central pulmonary vascular prominence and right greater than left parenchymal opacities are similar to previous. A small focal lucency at the right lateral lower chest may reflect a tiny pneumothorax. Attention on follow-up. Right chest tubes are stable. Signed: Dontrell Pham MDReport Verified Date/Time: 02/14/2018 04:48:10 Reading Location: [address] Reading Room IUM, IONIZED 2018-02-13 06:02:00* Test Item Value Reference Range Comments CALCIUM IONIZED (BEAKER) (test iisp=243) 1.03 mmol/L 1.12-1.27 PH, BLOOD (BEAKER) (test zmym=4776) 7.41 CBC W/PLT COUNT & AUTO [id number] 06:00:00* Test Item Value Reference Range Comments WHITE BLOOD CELL COUNT (BEAKER) (test wcgp=709) 13.3 K/ L 3.5-10.5 RED BLOOD CELL COUNT (BEAKER) (test mfvt=868) 4.23 M/ L 3.93-5.22 HEMOGLOBIN (BEAKER) (test yafk=930) 12.9 GM/DL 11.2-15.7 HEMATOCRIT (BEAKER) (test ikty=749) 39.8 % 34.1-44.9 MEAN CORPUSCULAR VOLUME (BEAKER) (test ndki=825) 94.1 fL 79.4-94.8 MEAN CORPUSCULAR HEMOGLOBIN (BEAKER) (test mgtj=427) 30.5 pg 25.6-32.2 MEAN CORPUSCULAR HEMOGLOBIN CONC (BEAKER) (test desx=865) 32.4 GM/DL 32.2-35.5 RED CELL DISTRIBUTION WIDTH (BEAKER) (test dwyk=455) 13.6 % 11.7-14.4 PLATELET COUNT (BEAKER) (test cxyh=817) 163 K/CU MM 150-450 MEAN PLATELET VOLUME (BEAKER) (test mbyw=001) 9.1 fL 9.4-12.3 NUCLEATED RED BLOOD CELLS (BEAKER) (test ivyk=260) 0 /100 WBC 0-0 NEUTROPHILS RELATIVE PERCENT (BEAKER) (test qvid=108) 81 % LYMPHOCYTES RELATIVE PERCENT (BEAKER) (test hmye=114) 10 % MONOCYTES RELATIVE PERCENT (BEAKER) (test eftw=329) 9 % EOSINOPHILS RELATIVE PERCENT (BEAKER) (test uuja=887) 0 % BASOPHILS RELATIVE PERCENT (BEAKER) (test jwhz=573) 0 % NEUTROPHILS ABSOLUTE COUNT (BEAKER) (test gxeo=317) 10.76 K/ L 1.56-6.13 LYMPHOCYTES ABSOLUTE COUNT (BEAKER) (test dnal=584) 1.33 K/ L 1.18-3.74 MONOCYTES ABSOLUTE COUNT (BEAKER) (test ioub=945) 1.14 K/ L 0.24-0.36 EOSINOPHILS ABSOLUTE COUNT (BEAKER) (test fjsd=199) 0.01 K/ L 0.04-0.36 BASOPHILS ABSOLUTE COUNT (BEAKER) (test ygce=271) 0.01 K/ L 0.01-0.08 IMMATURE GRANULOCYTES-RELATIVE PERCENT (BEAKER) (test nsrm=7660) 1 % 0-1 [id number] 06:00:00* Test Item Value Reference Range Comments MAGNESIUM (BEAKER) (test dtsd=891) 2.2 mg/dL 1.6-2.6 Specimen slightly hemolyzed [id number] 06:00:00* Test Item Value Reference Range Comments PHOSPHORUS (BEAKER) (test mmek=364) 2.0 mg/dL 2.3-4.7 Specimen slightly hemolyzed BASIC METABOLIC [id number] 06:00:00* Test Item Value Reference Range Comments SODIUM (BEAKER) (test uirh=203) 132 meq/L 136-145 POTASSIUM (BEAKER) (test bukn=381) 4.0 meq/L 3.5-5.1 Specimen slightly hemolyzed CHLORIDE (BEAKER) (test ehzm=826) 100 meq/L 98-107 CO2 (BEAKER) (test shgf=018) 24 meq/L 22-29 BLOOD UREA NITROGEN (BEAKER) (test kzef=271) 9 mg/dL 7-21 CREATININE (CATHIE) (test vbqz=069) 0.70 mg/dL 0.57-1.25 Specimen slightly hemolyzed GLUCOSE RANDOM (CATHIE) (test bdud=705) 101 mg/dL 70-105 CALCIUM (CATHIE) (test ubjb=225) 9.1 mg/dL 8.4-10.2 EGFR (CATHIE) (test pyai=0040) 99 mL/min/1.73 sq m ESTIMATED GFR IS NOT ACCURATE CREATININE CLEARANCE IN PREDICTING GLOMERULAR FILTRATION RATE. ESTIMATED GFR IS NOT APPLICABLE FOR DIALYSIS PATIENTS. RAD, CHEST, 1 VIEW, NON [id number] 04:15:00Reason for exam:->chest tubeShould this be performed at the bedside?->YesFINAL REPORT RAD, CHEST, 1 VIEW, NON DEPT INDICATION: chest tube COMPARISON: Prior day's exam FINDINGS: Portable frontal view of the chest. IMPRESSION: Support Lines: Stable. Lungs and pleura: Unchanged appearance of the air spaces. Increasing volume of right apical pneumothorax.Heart and mediastinum: Stable contours. Additional findings: None. Signed: JR Donis Robert MDReport Verified Date/Time: 02/13/2018 04:15:05 Reading Location: [address] Body Reading Room , CHEST, 1 VIEW, NON [id number] 14:08:00Reason for exam:->chest tubes just placed to gravityShould this be performed at the bedside?->YesFINAL REPORT Chest one view compared to February 12, 2018 Dis cussion: Right-sided chest tubes are again noted. A right-sided apical pneumotho rax has become apparent with apical pleural separation of approximately 1.5 cm. There is mild pulmonary congestion. No effusion. Signed: Diane Nesbitt V erified Date/Time: 02/12/2018 14:08:40 Reading Location: [facility] C013W Consult R eading Room 02: 08 PM BASIC METABOLIC [id number] 05:41:00* Test Item Value Reference Range Comments SODIUM (BEAKER) (test dosh=549) 135 meq/L 136-145 POTASSIUM (BEAKER) (test wwpj=006) 4.4 meq/L 3.5-5.1 Specimen slightly hemolyzed CHLORIDE (BEAKER) (test wttx=850) 108 meq/L 98-107 CO2 (BEAKER) (test fyzr=380) 17 meq/L 22-29 BLOOD UREA NITROGEN (BEAKER) (test aofr=764) 9 mg/dL 7-21 CREATININE (BEAKER) (test sxwn=614) 0.65 mg/dL 0.57-1.25 Specimen slightly hemolyzed GLUCOSE RANDOM (BEAKER) (test toly=593) 106 mg/dL 70-105 CALCIUM (BEAKER) (test ppes=408) 8.0 mg/dL 8.4-10.2 EGFR (BEAKER) (test jeoe=5566) 108 mL/min/1.73 sq m ESTIMATED GFR IS NOT ACCURATE CREATININE CLEARANCE IN PREDICTING GLOMERULAR FILTRATION RATE. ESTIMATED GFR IS NOT APPLICABLE FOR DIALYSIS PATIENTS. [id number] 05:25:00* Test Item Value Reference Range Comments MAGNESIUM (BEAKER) (test tclp=081) 2.1 mg/dL 1.6-2.6 Specimen slightly hemolyzed [id number] 05:25:00* Test Item Value Reference Range Comments PHOSPHORUS (BEAKER) (test ueba=347) 2.9 mg/dL 2.3-4.7 Specimen slightly hemolyzed CBC W/PLT COUNT & AUTO [id number] 05:19:00* Test Item Value Reference Range Comments WHITE BLOOD CELL COUNT (BEAKER) (test mjnh=291) 10.4 K/ L 3.5-10.5 RED BLOOD CELL COUNT (BEAKER) (test eaio=145) 3.79 M/ L 3.93-5.22 HEMOGLOBIN (BEAKER) (test fnqc=515) 11.5 GM/DL 11.2-15.7 HEMATOCRIT (BEAKER) (test soai=924) 35.7 % 34.1-44.9 MEAN CORPUSCULAR VOLUME (BEAKER) (test weht=169) 94.2 fL 79.4-94.8 MEAN CORPUSCULAR HEMOGLOBIN (BEAKER) (test uipy=706) 30.3 pg 25.6-32.2 MEAN CORPUSCULAR HEMOGLOBIN CONC (BEAKER) (test vgtf=714) 32.2 GM/DL 32.2-35.5 RED CELL DISTRIBUTION WIDTH (BEAKER) (test mtgn=448) 13.9 % 11.7-14.4 PLATELET COUNT (BEAKER) (test cthn=421) 189 K/CU MM 150-450 MEAN PLATELET VOLUME (BEAKER) (test hkau=965) 9.7 fL 9.4-12.3 NUCLEATED RED BLOOD CELLS (BEAKER) (test jcym=383) 0 /100 WBC 0-0 NEUTROPHILS RELATIVE PERCENT (BEAKER) (test wkyq=319) 83 % LYMPHOCYTES RELATIVE PERCENT (BEAKER) (test mqlj=052) 10 % MONOCYTES RELATIVE PERCENT (BEAKER) (test zfnc=548) 6 % EOSINOPHILS RELATIVE PERCENT (BEAKER) (test uktm=144) 0 % BASOPHILS RELATIVE PERCENT (BEAKER) (test zyqe=433) 0 % NEUTROPHILS ABSOLUTE COUNT (BEAKER) (test wxxt=485) 8.62 K/ L 1.56-6.13 LYMPHOCYTES ABSOLUTE COUNT (BEAKER) (test yqoy=392) 1.05 K/ L 1.18-3.74 MONOCYTES ABSOLUTE COUNT (BEAKER) (test oqqu=056) 0.64 K/ L 0.24-0.36 EOSINOPHILS ABSOLUTE COUNT (BEAKER) (test drpg=829) 0.00 K/ L 0.04-0.36 BASOPHILS ABSOLUTE COUNT (BEAKER) (test dtrr=000) 0.02 K/ L 0.01-0.08 IMMATURE GRANULOCYTES-RELATIVE PERCENT (BEAKER) (test umsu=3827) 0 % 0-1 RAD, CHEST, 1 VIEW, NON [id number] 05:15:00Reason for exam:->chest tubeShould this be performed at the bedside?->YesFINAL REPORT RAD, CHEST, 1 VIEW, NON DEPT INDICATION: chest tube COMPARISON: Prior day's exam FINDINGS: Portable frontal view of the chest. IMPRESSION: Support Lines: Stable. Lungs and pleura: Unchanged airspace and pleural opacities. Trace residual right apical pneumothorax.Heart and mediastinum: Stable contours. Additional findings: None. Signed: JR Donis Robert MDReport Verified Date/Time: 02/12/2018 05:15:17 Reading Location: [facility] B1 C013T Transitional Reading Room IUM, [id number] 05:12:00* Test Item Value Reference Range Comments CALCIUM IONIZED (BEAKER) (test otkh=381) 1.12 mmol/L 1.12-1.27 PH, BLOOD (BEAKER) (test qayy=1289) 7.37 BLOOD GAS, [id number] 05:11:00* Test Item Value Reference Range Comments PH ARTERIAL (BEAKER) (test xvas=116) 7.38 7.35-7.45 PCO2 ARTERIAL (BEAKER) (test wnss=400) 39 mmHg 35-45 PO2 ARTERIAL (BEAKER) (test hdbg=507) 140 mmHg 80-90 O2 SATURATION ARTERIAL (BEAKER) (test msiy=497) 98.7 % 96.0-97.0 HCO3 ARTERIAL (BEAKER) (test dggo=732) 22 mmol/L 21-29 BASE EXCESS ARTERIAL (BEAKER) (test rexa=686) -2.5 mmol/L -2.0-3.0 PATIENT TEMPERATURE (BEAKER) (test uhek=1267) 37.2 C FIO2 (BEAKER) (test cdaj=1666) 26.0 % RAD, CHEST, 1 VIEW, NON [id number] 18:51:00Reason for exam:->post opShould this be performed at the bedside?->YesFINAL REPORT AP chest HISTORY: Postoperative COMPARISON: 02/09/2018 IMPRESSION:Right thoracostomy tubes present. No definite pneumothorax. Stable cardiac silhouette. No focal infiltrate. No large effusion. Signed: Jhonathan Santos MDReport Verified Date/Time: 02/11/2018 18:51:14 Reading Location: [facility] B1 C013W Consult Reading Room IC ACID, ARTERIAL, WHOLE [id number] 18:09:00* Test Item Value Reference Range Comments LACTATE BLOOD ARTERIAL (2) (BEAKER) (test nxgt=3775) 0.9 mmol/L 0.5-2.2 Specimen slightly hemolyzed Effective 03/13/2016: Units/Reference Range ChangeNew: 0.5-2.2 mmol/L Previous: 5 -20 mg/[id number] 18:08:00* Test Item Value Reference Range Comments PHOSPHORUS (BEAKER) (test gjcf=871) 3.3 mg/dL 2.3-4.7 [id number] 18:08:00* Test Item Value Reference Range Comments MAGNESIUM (BEAKER) (test zasw=936) 1.9 mg/dL 1.6-2.6 CBC W/PLT COUNT & AUTO [id number] 18:07:00* Test Item Value Reference Range Comments WHITE BLOOD CELL COUNT (BEAKER) (test dttl=085) 11.8 K/ L 3.5-10.5 RED BLOOD CELL COUNT (BEAKER) (test ilfb=669) 4.00 M/ L 3.93-5.22 HEMOGLOBIN (BEAKER) (test bfbs=314) 12.2 GM/DL 11.2-15.7 HEMATOCRIT (BEAKER) (test lagy=550) 37.5 % 34.1-44.9 MEAN CORPUSCULAR VOLUME (BEAKER) (test hdpz=176) 93.8 fL 79.4-94.8 MEAN CORPUSCULAR HEMOGLOBIN (BEAKER) (test wgkc=986) 30.5 pg 25.6-32.2 MEAN CORPUSCULAR HEMOGLOBIN CONC (BEAKER) (test gxfh=997) 32.5 GM/DL 32.2-35.5 RED CELL DISTRIBUTION WIDTH (BEAKER) (test vdzi=411) 13.5 % 11.7-14.4 PLATELET COUNT (BEAKER) (test zgxv=388) 194 K/CU MM 150-450 MEAN PLATELET VOLUME (BEAKER) (test nehb=619) 9.4 fL 9.4-12.3 NUCLEATED RED BLOOD CELLS (BEAKER) (test omir=768) 0 /100 WBC 0-0 NEUTROPHILS RELATIVE PERCENT (BEAKER) (test twem=452) 75 % LYMPHOCYTES RELATIVE PERCENT (BEAKER) (test xnwj=103) 19 % MONOCYTES RELATIVE PERCENT (BEAKER) (test godx=956) 5 % EOSINOPHILS RELATIVE PERCENT (BEAKER) (test qdqb=160) 0 % BASOPHILS RELATIVE PERCENT (BEAKER) (test xqzq=280) 0 % NEUTROPHILS ABSOLUTE COUNT (BEAKER) (test gbig=895) 8.87 K/ L 1.56-6.13 LYMPHOCYTES ABSOLUTE COUNT (BEAKER) (test nseq=255) 2.19 K/ L 1.18-3.74 MONOCYTES ABSOLUTE COUNT (BEAKER) (test maqd=826) 0.62 K/ L 0.24-0.36 EOSINOPHILS ABSOLUTE COUNT (BEAKER) (test fwie=400) 0.02 K/ L 0.04-0.36 BASOPHILS ABSOLUTE COUNT (BEAKER) (test wggf=295) 0.03 K/ L 0.01-0.08 IMMATURE GRANULOCYTES-RELATIVE PERCENT (BEAKER) (test pkay=5274) 1 % 0-1 [id number] 18:05:00* Test Item Value Reference Range Comments PARTIAL THROMBOPLASTIN TIME (BEAKER) (test iyfu=542) 22.6 seconds 22.5-36.0 PROTHROMBIN TIME/[id number] 18:04:00* Test Item Value Reference Range Comments PROTIME (BEAKER) (test pcfk=997) 14.7 seconds 11.7-14.7 INR (BEAKER) (test fgro=405) 1.2 <=5.9 RECOMMENDED COUMADIN/WARFARIN INR THERAPY RANGESSTANDARD DOSE: 2.0 - 3.0 Inclu yonis: PROPHYLAXIS for venous thrombosis, systemic embolization; TREATMENT for josh ous thrombosis and/or pulmonary embolus.HIGH RISK: Target INR is 2.5-3.5 for pat ients with mechanical heart valves.BLOOD GAS, [id number] 17:43:00* Test Item Value Reference Range Comments PH ARTERIAL (BEAKER) (test rwxo=279) 7.34 7.35-7.45 PCO2 ARTERIAL (BEAKER) (test bcse=067) 41 mmHg 35-45 PO2 ARTERIAL (BEAKER) (test xkpx=186) 160 mmHg 80-90 O2 SATURATION ARTERIAL (BEAKER) (test ppcz=330) 99.0 % 96.0-97.0 HCO3 ARTERIAL (BEAKER) (test eyff=792) 22 mmol/L 21-29 BASE EXCESS ARTERIAL (BEAKER) (test ytla=736) -3.6 mmol/L -2.0-3.0 PATIENT TEMPERATURE (BEAKER) (test enjf=2844) 36.4 C FIO2 (BEAKER) (test gbwf=3556) 36.0 % SODIUM NA-STAT [id number] 17:43:00* Test Item Value Reference Range Comments SODIUM (BEAKER) (test uqzu=998) 145 meq/L 135-148 CALCIUM, [id number] 17:43:00* Test Item Value Reference Range Comments CALCIUM IONIZED (BEAKER) (test rdpw=184) 1.09 mmol/L 1.12-1.27 PH, BLOOD (BEAKER) (test cgwg=4194) 7.34 GLUCOSE-STAT [id number] 17:42:00* Test Item Value Reference Range Comments GLUCOSE RANDOM (BEAKER) (test yhsn=852) 102 mg/dL 70-110 POTASSIUM-STAT [id number] 17:42:00* Test Item Value Reference Range Comments POTASSIUM (BEAKER) (test leyd=097) 4.9 meq/L 3.6-5.5 HGB/HCT (H&H) - STAT [id number] 17:42:00* Test Item Value Reference Range Comments HEMOGLOBIN (BEAKER) (test nvqh=709) 12.9 g/dL 12.0-15.0 HEMATOCRIT (BEAKER) (test gxvc=136) 38.0 % 36.0-45.0 BLOOD GAS, [id number] 14:24:00* Test Item Value Reference Range Comments PH ARTERIAL (BEAKER) (test iekx=855) 7.43 7.35-7.45 PCO2 ARTERIAL (BEAKER) (test visy=296) 36 mmHg 35-45 PO2 ARTERIAL (BEAKER) (test hehf=030) 71 mmHg 80-90 O2 SATURATION ARTERIAL (BEAKER) (test fnmb=391) 96.0 % 96.0-97.0 HCO3 ARTERIAL (BEAKER) (test dxeq=816) 24 mmol/L 21-29 BASE EXCESS ARTERIAL (BEAKER) (test dwkv=546) -0.5 mmol/L -2.0-3.0 PATIENT TEMPERATURE (BEAKER) (test svek=2143) 35.2 C FIO2 (BEAKER) (test zitx=3591) 83.0 % CALCIUM, [id number] 14:24:00* Test Item Value Reference Range Comments CALCIUM IONIZED (BEAKER) (test yxmz=931) 1.08 mmol/L 1.12-1.27 PH, BLOOD (BEAKER) (test vlrz=5673) 7.41 GLUCOSE-STAT [id number] 14:23:00* Test Item Value Reference Range Comments GLUCOSE RANDOM (BEAKER) (test wrnq=044) 110 mg/dL 70-110 SODIUM NA-STAT [id number] 14:23:00* Test Item Value Reference Range Comments SODIUM (BEAKER) (test apka=175) 137 meq/L 135-148 POTASSIUM-STAT [id number] 14:23:00* Test Item Value Reference Range Comments POTASSIUM (BEAKER) (test amqy=523) 3.7 meq/L 3.6-5.5 HGB/HCT (H&H) - STAT [id number] 14:23:00* Test Item Value Reference Range Comments HEMOGLOBIN (BEAKER) (test odck=240) 12.2 g/dL 12.0-15.0 HEMATOCRIT (BEAKER) (test exki=289) 36.0 % 36.0-45.0 RAD, CHEST, 2 [id number] 13:48:00Reason for exam:->PreopFINAL REPORT EXAM: Frontal and lateral chest radiograph HISTORY PROVIDED: Pre-op COMPARISON: None available IMPRESSION:There is a 3.8 cm nodular opacity in the peripheral right upper lobe suspicious for a lung mass. If not already performed, recommend a chest CT for further evaluation as this is highly suspicious for malignancy. The medical record indicates upcoming orders for primary adenocarcinoma of right upper lobe. The left lung is clear. No pneum othorax or significant pleural fluid is identified. The cardiomediastinal silhou ette is within normal limits. No acute osseous abnormality. Signed: Johnathan Holland MDReport Verified Date/Time: 02/09/2018 13:48:34 Reading Location: [facility] Mammo Reading Room Electronically signed by: JOHNATHAN HOLLAND on 2017 01:48 PM COMPREHENSIVE METABOLIC [id number] 13:04:00* Test Item Value Reference Range Comments TOTAL PROTEIN (BEAKER) (test ipfu=995) 7.5 gm/dL 6.0-8.3 ALBUMIN (BEAKER) (test dakz=4167) 4.2 g/dL 3.5-5.0 ALKALINE PHOSPHATASE (BEAKER) (test rzjq=623) 135 U/L 40-150 BILIRUBIN TOTAL (BEAKER) (test gius=093) 0.5 mg/dL 0.2-1.2 SODIUM (BEAKER) (test ouyv=195) 138 meq/L 136-145 POTASSIUM (BEAKER) (test mehz=425) 4.0 meq/L 3.5-5.1 CHLORIDE (BEAKER) (test bhwl=312) 104 meq/L 98-107 CO2 (BEAKER) (test bgyt=790) 27 meq/L 22-29 BLOOD UREA NITROGEN (BEAKER) (test dkxd=732) 15 mg/dL 7-21 CREATININE (BEAKER) (test eeok=542) 0.76 mg/dL 0.57-1.25 GLUCOSE RANDOM (BEAKER) (test yvbl=661) 89 mg/dL 70-105 CALCIUM (BEAKER) (test dvvb=476) 9.6 mg/dL 8.4-10.2 AST (SGOT) (BEAKER) (test utql=283) 21 U/L 5-34 ALT (SGPT) (BEAKER) (test wstg=828) 16 U/L 6-55 EGFR (BEAKER) (test fqcl=0549) 90 mL/min/1.73 sq m ESTIMATED GFR IS NOT ACCURATE CREATININE CLEARANCE IN PREDICTING GLOMERULAR FILTRATION RATE. ESTIMATED GFR IS NOT APPLICABLE FOR DIALYSIS PATIENTS. PT/[id number] 12:55:00* Test Item Value Reference Range Comments PROTIME (BEAKER) (test cmda=155) 14.0 seconds 11.7-14.7 INR (BEAKER) (test gepm=891) 1.1 <=5.9 PARTIAL THROMBOPLASTIN TIME (BEAKER) (test aazv=434) 24.4 seconds 22.5-36.0 RECOMMENDED COUMADIN/WARFARIN INR THERAPY RANGESSTANDARD DOSE: 2.0 - 3.0 Inclu yonis: PROPHYLAXIS for venous thrombosis, systemic embolization; TREATMENT for josh ous thrombosis and/or pulmonary embolus.HIGH RISK: Target INR is 2.5-3.5 for pat ients with mechanical heart valves.CBC W/PLT COUNT & AUTO [id number] 12:48:00* Test Item Value Reference Range Comments WHITE BLOOD CELL COUNT (BEAKER) (test hgam=589) 5.0 K/ L 3.5-10.5 RED BLOOD CELL COUNT (BEAKER) (test zsgf=748) 4.46 M/ L 3.93-5.22 HEMOGLOBIN (BEAKER) (test whnx=808) 13.4 GM/DL 11.2-15.7 HEMATOCRIT (BEAKER) (test vomv=997) 41.4 % 34.1-44.9 MEAN CORPUSCULAR VOLUME (BEAKER) (test mrpw=084) 92.8 fL 79.4-94.8 MEAN CORPUSCULAR HEMOGLOBIN (BEAKER) (test unxq=251) 30.0 pg 25.6-32.2 MEAN CORPUSCULAR HEMOGLOBIN CONC (BEAKER) (test raxr=708) 32.4 GM/DL 32.2-35.5 RED CELL DISTRIBUTION WIDTH (BEAKER) (test jdau=438) 13.6 % 11.7-14.4 PLATELET COUNT (BEAKER) (test pvis=396) 203 K/CU MM 150-450 MEAN PLATELET VOLUME (BEAKER) (test ghus=914) 9.6 fL 9.4-12.3 NUCLEATED RED BLOOD CELLS (BEAKER) (test kdwo=741) 0 /100 WBC 0-0 NEUTROPHILS RELATIVE PERCENT (BEAKER) (test iizu=001) 50 % LYMPHOCYTES RELATIVE PERCENT (BEAKER) (test jjer=162) 40 % MONOCYTES RELATIVE PERCENT (BEAKER) (test vivr=847) 8 % EOSINOPHILS RELATIVE PERCENT (BEAKER) (test iwub=130) 1 % BASOPHILS RELATIVE PERCENT (BEAKER) (test thyt=063) 0 % NEUTROPHILS ABSOLUTE COUNT (BEAKER) (test zkel=948) 2.50 K/ L 1.56-6.13 LYMPHOCYTES ABSOLUTE COUNT (BEAKER) (test cmtl=282) 1.98 K/ L 1.18-3.74 MONOCYTES ABSOLUTE COUNT (BEAKER) (test pzjf=570) 0.40 K/ L 0.24-0.36 EOSINOPHILS ABSOLUTE COUNT (BEAKER) (test ycof=758) 0.07 K/ L 0.04-0.36 BASOPHILS ABSOLUTE COUNT (BEAKER) (test xvad=486) 0.02 K/ L 0.01-0.08 IMMATURE GRANULOCYTES-RELATIVE PERCENT (BEAKER) (test kykm=0619) 0 % 0-1 CHEST XRAY POST PROCEDURE [place] [id number] [place] [address] Patient Name: ROSANGELA HERNANDEZ MR #: [id number] : 1945 Age/Sex: 72/F Req #: [id number] Adm Physician: Ordered by: VINCE FORD MD Report #: [id number] Location: CT Room/Bed: Procedure: [id number] DX/CHEST XRAY POST PROCEDURE Ex am Date: Exam Time: REPORT STATUS: Signed PROCEDURE: CHEST XRAY POST PROCEDURE COMPARISON: CT biopsy 10/06/2017. INDIC ATIONS: POST CT LUNG BIOPSY 2 HOURS FINDINGS: LUNGS: Stable right upper lobe mass. PLEURA: No effusions. Stable trace right apical pneumo thorax. HEART T MEDIASTINUM: The heart is within normal size-limits. BONES T SOFT TISSUES: No acute findings. Degenerative changes of the thoracic spine. CONCLUSION: Stable trace right apical pneumoth orax. Dictated by: Vince Ford M.D. on 10/06/2017 at 14:46 E lectronically approved by: Vince Ford M.D. on 10/06/2017 at 14:46 Dictated By: VINCE FORD MD 45 Transcribed By: JOVAN on 10/06/171445 COPY TO: ALICIA FORD MD CHEST XRAY POST PROCEDURE [place] [address] Patient Name: ROSANGELA HERNANDEZ MR #: [id number] : 1945 Age/Sex: 72/F Req #: [id number] Adm Physician: Ordered by: VINCE FORD MD Report #: [id number] Location: CT Room/Bed: Procedure: DX/CHEST XRAY POST PROCEDURE Ex am Date: Exam Time: REPORT STATUS: Signed PROCEDURE: CHEST XRAY POST PROCEDURE TECHNIQUE: Upright PA chest INDICAT ION: Post lung biopsy COMPARISON: None. FINDINGS: See conclusion. Findings discussed with Dr. Ford at the time of dictation. CONC LUSION: 1. Miniscule right pneumothorax with an air gap of 2 mm. 2. Right u pper lobe 3 cm nodule. 3. Lungs otherwise clear. No pleural effusions. 4. No rmal heart size. Dictated by: Diane Rowan M.D. on 017 at 11:41 Electronically approved by: Diane Rowan M.D. on at 11:41 Dictated By: DIANE ROWAN MD Electronicall y Signed By: DIANE ROWAN MD on 10/06/17 1141 Transcribed By: JOVAN on 1141 COPY TO: VINCE FORD MD CT GUIDED BIOPSY/ASPIR/INJ/BRANDEN [place] [address] Patient Name: ROSANGELA HERNANDEZ MR #: [id number] : 1945 Age/Sex: 72/F Req #: [id number] Adm Physician: Ordered by: ANA LUISA STEIN M.D. Report #: [id number] Location: CT [place] m/Bed: Procedure: [id number] CT/CT GUIDED BIOPSY/ASPIR /INJ/BRANDEN Exam Date: 10/06/17 Exam Time: 1006 R EPORT STATUS: Signed PROCEDURE: CT GUIDED NEEDLE PLACEMENT COMPARISON: CT chest 09/01/2017 outside hospital. INDICATIONS: LUNG MASS FINDINGS: Written and verbal consent were obtained. Patient was placed prone. Prelim inary CT images identified the mass in the right upper lobe. A safe entry rou te was identified and the overlying skin was prepped and draped in usual ster ile fashion. Lidocaine 1% was used for local pain control. A 19 gauge guide w as advanced into the lesion. CT images confirmed proper position of the needl e tip within the lesion. Fine-needle aspiration biopsy samples x3 were obtain ed with 20 gauge needles. Core biopsy samples x6 were obtained with a 20 gaug e biopsy instrument. The images were given to pathology, who was at bedside. The pathologist determined the specimens to be a proper cellularity for di agnosis. Upon completion of the procedure, the needle was removed. Small left pneumothorax is present. A PA chest radiograph was ordered upon completion. A sterile dressing was applied. No immediate complication. The patient t olerated the procedure well, and there were no immediate post-procedural comp lications. CONCLUSION: Successful CT-guided fine needle aspiration an d core biopsy of the right upper lobe mass. Dictated by: Vince Ford M.D. on 10/06/2017 at 12:17 Electronically approved by: Leonid Wiley on 10/06/2017 at 12:17 Dictated By: VINCE FORD MD Electr onically Signed By: VINCE FORD MD on 10/06/177 Transcribed By: JOVAN on 7 COPY TO: ANA LUISA STEIN M.D. BIOPSY LUNG [place] [address] Patient Name: ROSANGELA HERNANDEZ MR #: [id number] : 1945 Age/Sex: 72/F Req #: [id number] [facility] Physician: Ordered by: ANA LUISA STEIN M.D. Report #: [id number] Location: CT [place] m/Bed: Procedure: [id number] IR/BIOPSY LUNG Exam Date : 10/06/17 Exam Time: 1006 REPORT STATUS: Patrica d PROCEDURE: CT GUIDED NEEDLE PLACEMENT COMPARISON: CT chest 09/01/2017 outside hospital. INDICATIONS: LUNG MASS FINDINGS: Written and verb al consent were obtained. Patient was placed prone. Preliminary CT images parveen ntified the mass in the right upper lobe. A safe entry route was identified a nd the overlying skin was prepped and draped in usual sterile fashion. Lidoca ine 1% was used for local pain control. A 19 gauge guide was advanced into th e lesion. CT images confirmed proper position of the needle tip within the le hero. Fine-needle aspiration biopsy samples x3 were obtained with 20 gauge needles. Core biopsy samples x6 were obtained with a 20 gauge biopsy instrum ent. The images were given to pathology, who was at bedside. The pathologist determined the specimens to be a proper cellularity for diagnosis. Upon compl etion of the procedure, the needle was removed. Small left pneumothorax is pr esent. A PA chest radiograph was ordered upon completion. A sterile silver ssing was applied. No immediate complication. The patient tolerated the proced ure well, and there were no immediate post-procedural complications. CO NCLUSION: Successful CT-guided fine needle aspiration and core biopsy of th e right upper lobe mass. Dictated by: Vince Frod M.D. on 10/06/2017 at 12:17 Electronically approved by: Vince Ford M.D. on 10/06/2017 at 12:17 Dictated By: VINCE FORD MD 1217 Transcribed By: JOVAN on 10/06/171216 C LUCIENY TO: ANA LUISA STEIN M.D.
[2019-09-20] MEDS ORDERED: SODIUM CHLORIDE 0.9% 1000ML 1,000 ML IV STA (13:01)
[2019-09-20] MEDS ORDERED: IPRATROPIUM BROMIDE 0.02% 2.5 ML NEB NEB STA (13:13)
[2019-09-20] MEDS ORDERED: ALBUTEROL SULF 0.083% NEB SOLN 3 ML NEB NEB STA (13:13)
[2019-09-20] MEDS ORDERED: METHYLPREDNISOLONE SOD SUCC 125 MG/2ML VIAL IV STA (13:13)
[2019-09-20] MEDS ORDERED: ASPIRIN 81 MG CHEW TAB PO ONE (13:15)
[2019-09-20 13:49] LABS: BASOPHILS % 0.6 % (0.0-1.0); EOSINOPHILS % 0.6 % (0.0-6.0); HEMATOCRIT 44.1 % (34.2-44.1); HEMOGLOBIN 14.6 g/dL (12.0-16.0); LYMPHOCYTES # (AUTO) 2.8 (1.0-3.2); LYMPHOCYTES % 39.1 % (18.0-39.1); MEAN CORPUSCULAR HEMOGLOBIN 30.2 pg (28-32); MEAN CORPUSCULAR HGB CONC 33.1 g/dL (31-35); MEAN CORPUSCULAR VOLUME 91.3 fL (81-99); MONOCYTES # (AUTO) 0.3 (0.2-0.8); MONOCYTES % 4.7 % (4.4-11.3); NEUTROPHILS # (AUTO) 3.9 (2.1-6.9); NEUTROPHILS % 54.7 % (38.7-80.0); PLATELET COUNT 202 x10e3/uL (140-360); RED BLOOD COUNT 4.83 x10e6/uL (3.6-5.1); RED CELL DISTRIBUTION WIDTH 12.6 % (11.7-14.4)
[2019-09-20 14:03] LABS: INR 1.07; PROTHROMBIN TIME 14.4 seconds (11.9-14.5)
[2019-09-20 14:04] LABS: PARTIAL THROMBOPLASTIN TIME 25.9 seconds (23.8-35.5)
[2019-09-20 14:21] LABS: ALANINE AMINOTRANSFERASE 21 IU/L (0-55); ALBUMIN 3.9 g/dL (3.5-5.0); ALKALINE PHOSPHATASE 178 IU/L (40-150); ANION GAP 16.6 mmol/L (8-16); BLOOD UREA NITROGEN 11 mg/dL (7-26); BUN/CREATININE RATIO 15 (6-25); CALCIUM 9.5 mg/dL (8.4-10.2); CARBON DIOXIDE 21 mmol/L (22-29); CHLORIDE 106 mmol/L (98-107); CREATINE KINASE 67 IU/L (29-168); CREATININE, SERUM 0.75 mg/dL (0.57-1.11); EST GLOMERULAR FILTRATION RATE > 60 ML/MIN (60-); GLUCOSE 78 mg/dL (74-118); LIPASE 8 U/L (8-78); POTASSIUM 4.6 mmol/L (3.5-5.1); SODIUM 139 mmol/L (136-145)
[2019-09-20] MEDS ORDERED: RIVAROXABAN 15 MG TABLET PO ONE (14:45)
--- NOTE | 2019-09-20 14:52 | Diagnostic Imaging Report ---
Chest, 1 view, 09/20/2019. History: Right-sided chest pain. Comparison: None available. Findings: The cardiomediastinal silhouette and pulmonary vasculature are within normal limits for a portable exam. There is dense right basilar opacity which obscures the right heart border and hemidiaphragm. The left lung is clear. There are no acute osseous or soft tissue abnormalities. Impression: Findings concerning for right middle and lower lobe atelectasis/pneumonia. Recommend follow-up two-view chest versus CT. Signed by: Aristides Salvador on 09/20/2019 2:49 PM
[2019-09-20] MEDS ORDERED: CEFTRIAXONE SOD 1 GM VIAL IV SCH (15:00)
[2019-09-20] MEDS ORDERED: RIVAROXABAN 15 MG TABLET PO SCH (15:00)
[2019-09-20] MEDS ORDERED: LEVALBUTEROL HCL SOLN NEBU 1.25 MG/3 ML NEB INH PRN (15:00)
[2019-09-20] MEDS ORDERED: CEFTRIAXONE SOD 1 GM/NS 50 ML 50 ML IV SCH (15:15)
[2019-09-20] MEDS ORDERED: ENOXAPARIN SOD INJ 60 MG/0.6 ML SYR SC ONE (16:11)
--- NOTE | 2019-09-20 16:12 | Diagnostic Imaging Report ---
CT of the chest, PE protocol, with contrast, 09/20/2019. History: Shortness of breath. Comparison: Chest x-ray from earlier today. Technique: Multidetector thin collimation CT scanning of the chest was performed from the level of the apices to the upper abdomen during the pulmonary arterial phase, after intravenous administration of contrast. Coronal and sagittal MIP reformations were obtained. RADIATION DOSE: Total DLP: 354 mGy*cm Dose modulation, iterative reconstruction, and/or weight based adjustment of the mA/kV was utilized to reduce the radiation dose to as low as reasonably achievable. Discussion: Chest: The pulmonary arteries are well-opacified demonstrating large hypodense filling defects extending across the main pulmonary artery into the right and left pulmonary arteries and into multiple upper lobe and lower lobe segmental branches. The main pulmonary artery is mildly enlarged measuring 3.1 cm in diameter. The heart and aorta are normal in size. The right thyroid lobe is heterogeneous and enlarged containing approximately 2.7 cm hypodense nodule. There is no axillary or mediastinal adenopathy. Linear opacities are present in the right middle lobe and right lower lobe suggestive of atelectasis. No evidence of consolidation, mass, or effusion. Limited evaluation of the upper abdomen shows normal bilateral adrenal glands. Bones and soft tissues: No acute abnormality. Mild degenerative changes are present throughout the thoracic spine. IMPRESSION: 1. Extensive bilateral saddle pulmonary emboli. The findings were discussed with Dr. Garcia at 1605 on 09/20/2019. 2. Right middle and lower lobe atelectasis. No evidence of pneumonia or infarction. 3. Prominent right thyroid lobe with nodule. This may be further evaluated with thyroid ultrasound. Signed by: Aristides Salvador on 09/20/2019 4:09 PM
[2019-09-20] MEDS ORDERED: FAMOTIDINE 20 MG/2 ML VIAL IV SCH (17:00)
--- NOTE | 2019-09-20 17:12 | NUR ---
DR KATHLEEN HERE SEEING PT REPORT TAKEN BY MADDY CHEW
[2019-09-20] MEDS ORDERED: CLONIDINE HCL 0.1 MG TAB PO PRN (17:30)
[2019-09-20] MEDS ORDERED: ALBUTEROL/IPRATROPIUM 3 ML NEB NEB PRN (17:30)
[2019-09-20 19:00] VITALS: BP 125/97
[2019-09-20] MEDS ORDERED: IPRATROPIUM BROMIDE 0.02% 2.5 ML NEB NEB SCH (19:00)
[2019-09-20 21:33] VITALS: BP 110/69
[2019-09-20] MEDS ORDERED: METHYLPREDNISOLONE SOD SUCC 40 MG/ML VIAL 1ML IV SCH (22:00)
[2019-09-20 22:01] VITALS: BP 125/97
[2019-09-20] MEDS ORDERED: SODIUM CHLORIDE 0.9% 50ML 50 ML ONE (22:19)
[2019-09-20] MEDS ORDERED: IOPAMIDOL 370 MG/ML 200 ML INFUS..BTL INJ ONE (22:19)
[2019-09-21] VITALS (9 sets, daily range): BP systolic 100–124; BP diastolic 61–74
--- NOTE | 2019-09-21 01:21 | Consultation ---
DATE OF CONSULTATION: Pulmonary Consultation Patient of Dr. Moss. HISTORY OF PRESENT ILLNESS: Admitted with shortness of breath over several days, says yesterday but then says the last week because of shortness of breath. History of hypertension, hyperlipidemia, gastroesophageal reflux. She has had resection of lung cancer in 2018, which apparently was an incidental finding and did not require chemotherapy . MEDICATIONS: Pepcid, Mevacor, vitamin D, calcium. SOCIAL HISTORY: She is an ex-smoker. No alcohol use. PHYSICAL EXAMINATION: GENERAL: She is a well-developed black female, in no acute distress, looking her stated age. Currently, she has been on Eliquis in the past. VITAL SIGNS: Temperature 97.8, pulse 83, blood pressure 126/80. HEAD: Normocephalic, atraumatic. LUNGS: Diminished breath sounds, but clear. HEART: Regular rhythm. ABDOMEN: Nontender. EXTREMITIES: DVT was noted in the left lower extremity, saddle embolus without hypotension. IMPRESSION: One of probable recurrent DVT, history of lung cancer. The patient will require long-term anticoagulation. Continue Lovenox; when more stable, would consider change to Xarelto. Thank you for this kind referral. MD TEVIN Piper/JORGE /[id number]
[2019-09-21] MEDS: ENOXAPARIN SOD INJ 60 MG/0.6 ML SYR SC SCH ×2 (04:20→17:13)
[2019-09-21 05:10] LABS: HEMATOCRIT 36.9 % (34.2-44.1); HEMOGLOBIN 12.4 g/dL (12.0-16.0); LYMPHOCYTES # (AUTO) 1.2 (1.0-3.2); MEAN CORPUSCULAR HGB CONC 33.6 g/dL (31-35); MEAN CORPUSCULAR VOLUME 89.3 fL (81-99); MONOCYTES # (AUTO) 0.2 (0.2-0.8); MONOCYTES % 2.6 % (4.4-11.3); NEUTROPHILS # (AUTO) 5.5 (2.1-6.9); PLATELET COUNT 180 x10e3/uL (140-360); RED BLOOD COUNT 4.13 x10e6/uL (3.6-5.1); RED CELL DISTRIBUTION WIDTH 12.8 % (11.7-14.4)
[2019-09-21 05:26] LABS: ANION GAP 13.4 mmol/L (8-16); BLOOD UREA NITROGEN 16 mg/dL (7-26); BUN/CREATININE RATIO 21 (6-25); CALCIUM 9.4 mg/dL (8.4-10.2); CARBON DIOXIDE 21 mmol/L (22-29); CHLORIDE 106 mmol/L (98-107); CREATININE, SERUM 0.77 mg/dL (0.57-1.11); EST GLOMERULAR FILTRATION RATE > 60 ML/MIN (60-); GLUCOSE 128 mg/dL (74-118); POTASSIUM 4.4 mmol/L (3.5-5.1); SODIUM 136 mmol/L (136-145)
--- NOTE | 2019-09-21 14:10 | NUR ---
Visit made by the Spiritual Care Department Pastoral Visitor, Junie Rodrigues. PV provided pastoral presence, prayer, hospitality, and supportive listening. Pastoral Visitor informed pt/family of the scope of [facility] and availability. LARA BROWN [employer] Account Assistant Spiritual Care Department O: [phone] Pager: [phone] ([phone] calling from)
--- NOTE | 2019-09-21 15:40 | Progress Note ---
DATE: PARAOPTOMETRIC: Dr. Baxter with Pulmonary. CHIEF COMPLAINT: Shortness of breath. SUBJECTIVE: In bed with no acute distress. O2 via nasal cannula, saturating 100%. She denies any acute distress, cough, chest pain, or bilateral lower extremity swelling or pain. PHYSICAL EXAMINATION: VITAL SIGNS: Temperature 96.8, pulse is 74, respirations 18, blood pressure is 124/73, and pulse ox is 100% on 2 L of O2. GENERAL: No acute distress. HEENT: Normocephalic and atraumatic. NECK: Supple. CARDIOVASCULAR: Regular rate and rhythm. LUNGS: Decreased breath sounds. ABDOMEN: Soft and nontender. NEUROLOGIC: Alert, awake, and oriented x3. MUSCULOSKELETAL: Moves all extremities. No edema noted or discoloration. SKIN: No rash. LABORATORY DATA: WBC 6.83, hemoglobin is 12.4, and hematocrit is 36.9. Sodium is 136, potassium is 4.4, creatinine is 0.77, estimated GFR is greater than 60, and glucose is 128. TSH is 0.280. BNP is 379. IMAGING DATA: CT chest with extensive bilateral saddle pulmonary emboli. IMPRESSION AND PLAN: 1. Bilateral saddle pulmonary embolism. We will continue on Lovenox full dose 60 mg b.i.d. Pulmonary on the case, likely due to recurrent deep venous thromboses. 2. Recurrent deep venous thromboses. Venous Doppler showed acute popliteal deep venous thrombosis. She was off Eliquis 2 months ago for left leg deep venous thrombosis. We will require blood thinners indefinitely. 3. History of lung cancer, status post resection. We will continue current treatment. 4. Elevated blood pressure. The patient denies any history of high blood pressure and does not take any BP medications at home. We will continue on clonidine as needed. 5. History of chronic obstructive pulmonary disease, stable. Neb treatments as needed. 6. Deep vein thrombosis prophylaxis. Continue Lovenox. Dictated by BOOKER Wu Sylvia Moss MD MY/MODL /[id number] Seen and examined, updated family at the bedside. Agree with the findings and plan as documented by ANP Judy Santacruz. SHAHAB
--- NOTE | 2019-09-21 17:22 | NUR ---
RECEIVED PATIENT FROM [facility]. PATIENT A/O X3, EVEN RESPIRATIONS ON 2LNC. LUNG SOUNDS DIMINISHED TO AUSCULTATION. LEFT AC 20 GAUGE IV SL. PATIENT ON BEDREST, VOIDS IN BEDPAN. NO PAIN AT THIS TIME. CALL LIGHT IN REACH WILL CONTINUE TO MONITOR PATIENT.
--- NOTE | 2019-09-21 19:30 | NUR ---
RECEIVED PT IN BED A/A/OX3 AND DENIES ANY PAIN. RESPIRATION EVEN AND UNLABORED, PT HAS O2 2L VIA NC. PT IS NSR, NO EDEMA NOTED, ALL PULSES ARE PALPABLE. PT IS ON COMPLETE BEDREST PER MD ORDERS AND USES A BEDPAN. PT IS CONTINENT FOR BOWEL AND BLADDER. LAC 20G SL IS INTACT. NO ISSUES NOTED. WILL CONTINUE TO MONITOR.
[2019-09-22] VITALS (8 sets, daily range): BP systolic 108–149; BP diastolic 60–72
[2019-09-22] MEDS: ENOXAPARIN SOD INJ 60 MG/0.6 ML SYR SC SCH ×2 (04:31→16:12)
--- NOTE | 2019-09-22 15:30 | NUR ---
Received order for home health. Discussed with patient and she chooses [facility] in [place] - [phone]. Choice letter copied and placed on chart and given to patient. Clinicals faxed to [phone]. Conf received. Addendum: 09/23/19 at 0900 by Mary Bueno CM Spoke to Sirena at [facility] this AM. She states she has received the fax, and auth has been requested. Notified Sirena of likely DC date of tmrw 09/[address] Moss's progress note.
--- NOTE | 2019-09-22 16:46 | Progress Note ---
DATE: 09/22/2019 DREDGE OR BARGE SHORE HAND: Dr. Baxter with Pulmonary. CHIEF COMPLAINT: Shortness of breath. SUBJECTIVE: No shortness of breath, saturating 100% on 2 L of O2. She denies any chest pain, fever, chills, cough, or dyspnea with activity. PHYSICAL EXAMINATION: VITAL SIGNS: Temperature 96.5, pulse is 51, respirations 18, blood pressure is 116/72, and pulse ox is 100% on 2 L of O2. GENERAL: No acute distress. HEENT: Normocephalic and atraumatic. NECK: Supple and midline. CARDIOVASCULAR: Regular rate and rhythm. LUNGS: Decreased breath sounds. ABDOMEN: Soft and nontender. NEUROLOGIC: Alert, awake, and oriented x3. MUSCULOSKELETAL: Moves all extremities. SKIN: Dry and intact. IMPRESSION AND PLAN: 1. Saddle pulmonary embolism. We will continue on Lovenox 60 mg b.i.d. O2 via nasal cannula as needed. Anticipate discharge home on Friday on p.o. anticoagulation per Pulmonary. 2. Recurrent deep venous thrombosis. Venous Doppler showed acute popliteal deep venous thrombosis. We will continue on Lovenox for now and resume Eliquis upon discharge. 3. History of lung cancer, status post resection. We are aware. 4. Elevated blood pressure, now stable. 5. History of chronic obstructive pulmonary disease. Stable with no exacerbation. Nebs as needed. 6. Deep vein thrombosis prophylaxis. Continue Lovenox. 7. Disposition. Home on Friday on p.o. anticoagulation. Dictated by BOOKER Wu Sylvia Moss MD MY/MODL /[id number] Seen and examined. Agree with the findings and plan as documented by BOOKER Santacruz. MTDD
--- NOTE | 2019-09-22 18:55 | NUR ---
Received report from previous nurse. Patient in bed. Call light within reach.
[2019-09-23] VITALS (7 sets, daily range): BP systolic 108–141; BP diastolic 58–70
[2019-09-23] MEDS: ENOXAPARIN SOD INJ 60 MG/0.6 ML SYR SC SCH ×2 (03:31→16:27)
--- NOTE | 2019-09-23 06:46 | NUR ---
Gave report to oncoming nurse. Patient asleep in bed. Call light within reach
--- NOTE | 2019-09-23 11:55 | Progress Note ---
DATE: 09/23/2019 CONSULTANTS: Rodriguez Baxter MD., with Pulmonary. CHIEF COMPLAINT: Shortness of breath and lower extremity pain. SUBJECTIVE: Shortness of breath improved, seen resting in bed with no acute distress. No chest pain, pain, fever, chills, or cough. PHYSICAL EXAMINATION: VITAL SIGNS: Temperature 96.8, pulse is 61, respirations 16, blood pressure 141/70, pulse ox 100% on 2 L of O2. GENERAL: No acute distress. HEENT: Normocephalic, atraumatic. NECK: Supple and midline. CARDIOVASCULAR: Regular rate and rhythm. LUNGS: Clear to auscultation. ABDOMEN: Soft and nontender. NEUROLOGIC: Alert, awake, and oriented x3. MUSCULOSKELETAL: Moves all extremities. No edema noted. SKIN: Dry and intact. IMPRESSION: 1. Saddle pulmonary embolism. We will continue with Lovenox 60 mg subcu b.i.d. O2 as needed. Anticipate discharge home tomorrow with Eliquis per Pulmonary. 2. Recurrent deep vein thrombosis. Venous Doppler showed acute popliteal deep venous thrombosis. We will continue with Lovenox and Eliquis upon discharge. 3. History of lung cancer, status post resection. 4. Elevated blood pressure, now stable. We will treat with clonidine p.r.n. 5. History of chronic obstructive pulmonary disease, stable with no exacerbation. Nebs as needed. PLAN: Discharge home tomorrow on Eliquis. Dictated by BOOKER Wu Sylvia Moss MD MY/MODL /[id number] Seen and examined on 09/23/2019. Agree with the findings and plan as documented by BOOKER Santacruz. SHAHAB
[2019-09-24 02:17] VITALS: BP 141/63
[2019-09-24 04:00] VITALS: BP 123/63
[2019-09-24] MEDS: ENOXAPARIN SOD INJ 60 MG/0.6 ML SYR SC SCH (04:40)
--- NOTE | 2019-09-24 07:30 | NUR ---
Received patient this morning, a/ox3, in bed and no resp distress, call light within reach, pains well controlled, bed in low locked position, will monitor.
[2019-09-24 07:59] VITALS: BP 124/60
[2019-09-24 09:40] VITALS: BP 124/60
--- NOTE | 2019-09-24 10:08 | NUR ---
Rounds by Dr. Baxter and cleared patient for discharge
[2019-09-24 11:29] VITALS: BP 147/67
[2019-09-24] MEDS ORDERED: ELIQUIS5 MG PO (13:34)
[2019-09-24 15:31] VITALS: BP 113/65
[2019-09-24] MEDS ORDERED: APIXABAN 5 MG TABLET PO SCH (17:00)
--- NOTE | 2019-09-25 06:26 | Discharge Summary ---
PRIMARY CARE PHYSICIAN: Dr. Queen at [facility]. FINAL DIAGNOSES: 1. Saddle pulmonary embolus. 2. Acute deep vein thrombosis, recurrent. 3. History of lung cancer. 4. Elevated blood pressure. 5. History of chronic obstructive pulmonary disease. CONSULTANTS: Dr. Baxter with Pulmonary. PROCEDURES: None. HISTORY: Per HPI. HOSPITAL COURSE: This is a 74-year-old female, who presented to the ER with complaints of shortness of breath. Imaging showed she has extensive bilateral saddle pulmonary emboli and venous Doppler showed acute DVT in the popliteal area. She was started on Lovenox 60 mg subcu b.i.d. She was started on O2 as needed via nasal cannula. She was monitored for few days with no further hypoxia, fever, chest pain, or increased shortness of breath. Echocardiogram was done, which was normal with EF of 60%. She was noted to have slightly elevated blood pressure reported. She does not taking any blood pressure medications at home, was monitored off any medications. Today, she is feeling much better, Dr. Baxter with Pulmonary has cleared her for discharge on Eliquis indefinitely due to her recurrent DVTs. PHYSICAL EXAMINATION: VITAL SIGNS: Temperature 95.8, pulse is 71, respirations 14, blood pressure 147/67, pulse ox is 100% on room air. GENERAL: No acute distress. HEENT: Normocephalic and atraumatic. NECK: Supple and midline. CARDIOVASCULAR: Regular rate and rhythm. LUNGS: Clear to auscultation. ABDOMEN: Soft and nontender. NEUROLOGIC: Alert, awake, and oriented x3. MUSCULOSKELETAL: Moves all. EXTREMITIES: No edema noted. SKIN: Dry and intact. CONDITION AT DISCHARGE: Stable and improved. DISCHARGE MEDICATIONS: Eliquis 10 mg b.i.d. for the next 7 days and then 5 mg p.o. b.i.d. DISCHARGE FOLLOWUP: Follow up with Dr. Queen in 1 to 2 weeks. TIME SPENT: Total time of discharge is 35 minutes. Dictated by BOOKER Wu Karisching Sp Moss MD MY/MODL /[id number] cc: [facility] and examined on 09/24/19. Agree with the findings and plan as documented by BOOKER Santacruz. SHAHAB
== END 2019-09-24 16:35 | disposition home health service (06) | DRG 176 ==
LOC: ER 12:51 → ERHOLD 15:15 → IMCU 17:34 → MED/SURG 09-21 17:23
PROVIDERS: ADMIT Internal Medicine; ATTEND Internal Medicine
DX: I26.92 Saddle embolus of pulmonary artery without acute cor pulmonale (principal); I82.432 Acute embolism and thrombosis of left popliteal vein; J44.9 Chronic obstructive pulmonary disease, unspecified; Z85.118 Personal history of other malignant neoplasm of bronchus and lung; R03.0 Elevated blood-pressure reading, without diagnosis of hypertension; R09.02 Hypoxemia; K21.9 Gastro-esophageal reflux disease without esophagitis; E78.5 Hyperlipidemia, unspecified
CPT/HCPCS: 36415; 71045; 71260; 80048; 80053; 82550; 82553; 83690; 83735; 83880; 84443; 84484; 85025; 85610; 85730; 93005; 93306; 93970; 94640; 99284; J0696; J1650; J2930; J7030; Q9967

== ENCOUNTER 2025-07-09 10:02 | Inpatient (IN) | payer MEDICARE ==
[~2025-07-09] VITALS: Ht 160 cm; Wt 63.5 kg
[2025-07-09] VITALS (9 sets, daily range): BP systolic 113–142; BP diastolic 70–79; PULSE 71–113; RESP 18–20; TEMP 98.3–99.5; O2SAT 94–100
[~2025-07-09 10:02] MED LIST: CLOPIDOGREL75 MG PO; ELIQUIS2.5 MG PO; ELIQUIS5 MG PO; FAMOTIDINE20 MG PO; LIPITOR20 MG PO; OS-CAL 500+D T1 EACH PO; PATADAY2.5 ML OP; ST. JOSEPH ASPI81 M2 PO
[2025-07-09 11:00] LABS: BASOPHILS % 0.3 % (0.0-1.0); EOSINOPHILS % 0.2 % (0.0-6.0); LYMPHOCYTES % 17.6 % (18.0-39.1); MONOCYTES % 7.9 % (4.4-11.3); NEUTROPHILS % 73.6 % (38.7-80.0); RED CELL DISTRIBUTION WIDTH 13.2 % (11.7-14.4)
[2025-07-09] MEDS: LACTATED RINGER'S 1,000 ML INJ ONE (11:21)
[2025-07-09] MEDS: ALBUTEROL/IPRATROPIUM 3 ML NEB NEB ONE (11:29)
[2025-07-09 11:44] LABS: EST GLOMERULAR FILTRATION RATE 87.0 ML/MIN (>=60)
[2025-07-09] MEDS ORDERED: SODIUM CHLORIDE 0.9% 100 ML ONE (12:23)
[2025-07-09] MEDS ORDERED: IOPAMIDOL 370 MG/ML 100 ML INFUS..BTL INJ ONE (12:23)
[2025-07-09 12:37] LABS: LEUKOCYTE ESTERASE ,URINE TRACE (NEGATIVE); PROTEIN,URINE DIPSTICK 1+ (NEGATIVE); URINE UROBILINOGEN 2.0 mg/dL (0.2 - 1); WBC,URINE (MAN) >50 /HPF (0-5)
[2025-07-09 12:38] LABS: EPITHELIAL CELLS,URINE FEW /LPF
[2025-07-09] MEDS: SODIUM CHLORIDE 0.9% 1000ML 1,000 ML IV SCH (14:27)
[2025-07-09] MEDS: FAMOTIDINE 20 MG TAB PO SCH (16:48)
[2025-07-09] MEDS: APIXABAN 2.5 MG TABLET PO SCH (16:48)
[2025-07-09] MEDS: ATORVASTATIN 40 MG TAB PO SCH (21:38)
[2025-07-09] MEDS ORDERED: HYDRALAZINE HCL 20 MG/ML VIAL IV PRN (23:15)
[2025-07-09] MEDS ORDERED: ONDANSETRON HCL INJ 2MG/ML 2ML 2 MG/ML VIAL IV PRN (23:15)
[2025-07-09] MEDS ORDERED: ALBUTEROL/IPRATROPIUM 3 ML NEB NEB PRN (23:15)
[2025-07-10] VITALS (13 sets, daily range): BP systolic 121–138; BP diastolic 66–80; PULSE 84–110; RESP 17–20; TEMP 97.4–99.5; O2SAT 95–100
[2025-07-10] MEDS: METOPROLOL TARTRATE 25 MG TAB PO SCH (00:44)
[2025-07-10] MEDS: ALBUTEROL/IPRATROPIUM 3 ML NEB NEB SCH (00:49)
[2025-07-10 05:39] LABS: BASOPHILS % 0.5 % (0.0-1.0); EOSINOPHILS % 0.5 % (0.0-6.0); LYMPHOCYTES % 12.0 % (18.0-39.1); MONOCYTES % 6.7 % (4.4-11.3); NEUTROPHILS % 79.9 % (38.7-80.0); RED CELL DISTRIBUTION WIDTH 13.2 % (11.7-14.4)
[2025-07-10 05:54] LABS: EST GLOMERULAR FILTRATION RATE 89.0 ML/MIN (>=60)
[2025-07-10] MEDS ORDERED: GUAIFENESIN/CODEINE 5 ML LIQD PO PRN (09:00)
[2025-07-10] MEDS: HYDROCODONE/APAP 5MG-325MG TAB PO PRN (14:26)
[2025-07-10] MEDS: GUAIFENESIN/DEXTROMETHORPHAN LIQD 5 ML UDC NG PRN (21:24)
[2025-07-11] VITALS (11 sets, daily range): BP systolic 130–152; BP diastolic 58–101; PULSE 81–111; RESP 17–20; TEMP 97.5–99; O2SAT 96–100
[2025-07-11] MEDS: HYDROCODONE/APAP 10MG-325MG TAB PO PRN (15:28)
[2025-07-12] VITALS (9 sets, daily range): BP systolic 117–140; BP diastolic 60–95; PULSE 81–114; RESP 14–19; TEMP 97.7–98.9; O2SAT 92–100
[2025-07-12 06:11] LABS: BASOPHILS % 0.4 % (0.0-1.0); EOSINOPHILS % 0.8 % (0.0-6.0); LYMPHOCYTES % 13.2 % (18.0-39.1); MONOCYTES % 5.9 % (4.4-11.3); NEUTROPHILS % 79.3 % (38.7-80.0); RED CELL DISTRIBUTION WIDTH 13.0 % (11.7-14.4)
[2025-07-12 06:59] LABS: EST GLOMERULAR FILTRATION RATE 90.0 ML/MIN (>=60)
[2025-07-12 07:20] LABS: PHOSPHORUS 3.1 MG/DL (2.3-4.7)
[2025-07-12 11:06] LABS: INR 1.25
[2025-07-12 15:40] LABS: BODY FLUID APPEARANCE SL.CLOUDY; BODY FLUID COLOR RED
[2025-07-12 15:42] LABS: WBC,BODY FLUID 1789 cells/uL
[2025-07-12 16:28] LABS: EOSINOPHILS,BODY FLUID 1 %; LYMPHOCYTES,BODY FLUID 87 %; MONO/MACROPHG,BODY FLUID 8 %; NEUTROPHILS,BODY FLUID 4 %; TOTAL CELLS COUNTED (DIFF) 100
[2025-07-12] MEDS: ACETAMINOPHEN 325 MG TAB PO PRN (16:43)
[2025-07-13] VITALS (12 sets, daily range): BP systolic 127–141; BP diastolic 61–90; PULSE 91–114; RESP 14–20; TEMP 97.1–98.9; O2SAT 94–100
[2025-07-13 05:15] LABS: ALPHA FETO-PROTEIN 2.5 ng/mL (0.0-8.7)
[2025-07-13] MEDS: APIXABAN 2.5 MG TABLET PO SCH (09:44)
[2025-07-13] MEDS: METHYLPREDNISOLONE SOD SUCC 125 MG/2ML VIAL IV ONE (09:44)
[2025-07-14] VITALS (7 sets, daily range): BP systolic 122–134; BP diastolic 60–94; PULSE 88–106; RESP 16–20; TEMP 97.4–97.9; O2SAT 97–100
[2025-07-14 09:03] LABS: TOTAL PROTEIN,BODY FLUID 4.1 g/dL
== END 2025-07-14 13:30 | disposition home health service (06) | DRG 180 ==
LOC: ER 10:09 → ERHOLD 15:06 → MED/SURG2 16:00
PROVIDERS: ADMIT Internal Medicine; ATTEND Internal Medicine
PROC: 0W993ZX Drainage of Right Pleural Cavity, Percutaneous Approach, Diagnostic (ICD-10-PCS; principal; 2025-07-13)
DX: C34.91 Malignant neoplasm of unspecified part of right bronchus or lung (principal); J18.9 Pneumonia, unspecified organism; J96.20 Acute and chronic respiratory failure, unspecified whether with hypoxia or hypercapnia; N39.0 Urinary tract infection, site not specified; J90 Pleural effusion, not elsewhere classified; E44.0 Moderate protein-calorie malnutrition; C79.82 Secondary malignant neoplasm of genital organs; D64.9 Anemia, unspecified; E78.5 Hyperlipidemia, unspecified; R00.0 Tachycardia, unspecified; Z86.718 Personal history of other venous thrombosis and embolism; Z88.5 Allergy status to narcotic agent; Z79.01 Long term (current) use of anticoagulants; Z79.82 Long term (current) use of aspirin; Z79.02 Long term (current) use of antithrombotics/antiplatelets; Z90.2 Acquired absence of lung [part of]; Z85.118 Personal history of other malignant neoplasm of bronchus and lung; Z68.24 Body mass index [BMI] 24.0-24.9, adult; Z11.52 Encounter for screening for COVID-19
CPT/HCPCS: 32555; 36415; 71045; 71260; 74177; 74470; 80048; 80053; 81001; 82105; 82378; 82948; 83605; 83615; 83735; 83880; 83970; 84100; 84157; 84484; 85025; 85610; 86301; 86304; 87040; 87070; 87086; 87205; 88112; 88305; 89051; 93005; 94799; 99284; C1729; J0696; J2543; J2919; J7030; J7050; Q9967